=== PATIENT | female | born 1970 | race Caucasian/White ===

== ENCOUNTER 2017-03-08 13:26 | Emergency (ER) | payer MEDICAID ==
[~2017-03-08] VITALS: Ht 160 cm; Wt 56.7 kg
[~2017-03-08 13:26] MED LIST: BUSPIRONE 5MG TA5 MG PO; ESCITALOPRAM 2020 MG PO; ETODOLAC400 MG PO; FLEXERIL10 MG PO; HYDROCODONE-APA1 TA1 PO; KEFLEX500 M1 PO; LEXAPRO 10 MG T10 MG PO; TRAZODONE 50MG50 MG PO; TYLENOL WITH CO1 TA1 PO
--- NOTE | 2017-03-08 13:49 | [facility] Report ---
History of Present Issue Date/Time Seen by Provider 03/08/17 7068 Visit Reason Pt arrived:Walked Presenting Problem:P/T C/O LEFT SHOULDER PAIN THAT RADIATES UP TO NECK AND DOWN TO ELBOW Location if Accident: Onset of symptoms date/time:/ or onset unknown for:MEDICAL HX UNKNOWN Have you (or family members/close friends) recently traveled outside the [place]? N If Yes, where/when: Have you had exposure to infectious disease within the past month? TB? Other? Specify: c/o left shoulder blade pain radiating up neck and into left arm at times worsening since yesterday. Pain worse "with too much rest or too much movement". Described as "tightening. Like a squeezing in my shoulder blade." Spent the weekend lifting and moving heavy items. Denies N/T. Limited ROM left shoulder "because it makes pain worse but I could do it". Little improvement w/ ibuprofen as needed. Hasn't taken it consistently or tried anything else. Denies decreased ROM neck "although looking left makes my shoulder blade hurt worse" Source patient Exam Limitations no limitations ALLERGIES Coded Allergies: erythromycin base (08/20/16) Home Medications Active Scripts Cephalexin (Keflex 500MG) 500 MG PO QID #40 CAP Prov: 11/21/16 Reported Medications Buspirone Hcl (Buspirone 5MG) 5 MG PO TID TRAZODONE HCL (Trazodone HCl) 75 MG PO QHS Escitalopram Oxalate (Lexapro 10MG) 10 MG PO DAILY History Medical History General CAD? No Angina: No UT: No Hypertension? No Hyperlipidemia? No CHF? No DVT? No PE? No COPD? No Asthma? No Anemia? No GERD? No Gastric ulcers? No GI Bleed? No Hernia? No Thyroid Problems? No Hypothyroidism? No CVA? No Seizures? No Diabetes? No Renal Insuffiency? No UTI? No Stones? No BPH? No GB Disease: No Nephritic Syndrome? No Asplenia? No Hepatitis? No Sickle Cell Disease? No Arthritis? No Migraines? Yes Cataracts? No Glaucoma? No MRSA? No HIV? No TB? No Anxiety? Yes Depression? Yes Cancer? No More? No Immunization HX DT/Tetanus [id number] Surgical Hx Previous Surgery?Y PARTIAL HYSTERECTOMY APPENDECTOMY GALLBLADDER CYST ON OVARY Social History Smoking Hx Smoker: Current Every Day Smoker Tobacco: Yes Type Cigarettes Packs/day < 1 Pack Alcohol Alcohol: No Review of Systems All Other Systems Reviewed and Negative Constitutional denies chills, denies fever, denies malaise Respiratory denies shortness of breath Cardiovascular denies chest pain, denies palpitations Gastrointestinal denies nausea, denies vomiting Musculoskeletal see HPI Skin denies lesions, denies rash Psychiatric/Neurological denies headache Physical Exam Vital Signs Vital Signs Date Time Temp Pulse Resp B/P Pulse O2 O2 Flow FiO2 Ox Delivery Rate 03/08 1415 98.3 71 18 125/75 94 03/08 1356 18 03/08 1340 98.3 71 18 125/75 94 General Appearance normal appearance, no apparent distress Neck supple, full range of motion, mild tenderness left posterior Respiratory Status No: respiratory distress. Lung Sounds anterior: lungs clear. posterior: lungs clear. bilateral: lungs clear. Cardiovascular regular rate/rhythm, no peripheral edema, no murmur Back no vertebral tenderness, gait normal, left thoracic tenderness consistent w / location of trapezus muscle; + spasm of muscle Extremities normal range of motion (left UE but w/ inc pain), normal inspection Strength 5 Upper Ext (L), 5 Upper Ext (R) Neurologic alert, no motor/sensory deficits Skin normal color, warm/dry Medical Decision Making LABS/Meds/Orders Pt receiving controlled substance in ED? No Results/Orders Current Medication Orders Sig/Theodora Start time Last Medication Dose Route Stop Time Status Admin Ketorolac 60 MG ONCE ONE 03/08 1400 DC 03/08 Tromethamine IM 03/08 1401 1356 Ketorolac 0 .STK-MED ONE 03/08 1351 DC Tromethamine .ROUTE Departure Departure Time of Disposition 1410 Disposition DC Home or Self Care(routine) Clinical Impression Primary Impression: Strain of left trapezius muscle Qualifiers: Encounter type: initial encounter Qualified Code: S46.812A - Strain of other muscles, fascia and tendons at shoulder and upper arm level, left arm, initial encounter Secondary Impressions: Muscle spasm of left shoulder Condition STABLE Referrals MARCE PENDLETON (Family) Call today and schedule follow up appointment. Follow up sooner for new or worsening symptoms. Patient Instructions Cyclobenzaprine, DI for Muscle Spasm, DI for Shoulder Sprain, Nonsteroidal Anti-inflammatory Drugs (Alternative Therapy) Additional Instructions * Naproxen with meal as twice a day for pain/inflammation. * Remember you had a toradol shot, similiar anti-inflammatory in clinic around 1 :30 * No additional anti-inflammatories like motrin, aleve, advil with the above amount of ibuprofen. You CAN still take Tylenol every 4 hours as needed if you need something more for pain. * Ice x15-20 mins 3-4 times a day and if no relief, try moist heat x15-20 mins 3-4 times a day to affected area * Muscle relaxer every 8 hours as needed for muscle spasms but remember, it WILL cause drowsiness. You can NOT take it and drive, operate machinary or care for small children * Keep this area active. No movement leads to more stiffness. However, take it easy too and avoid heavy lifting, pushing, pulling. Discharge Counseling Counseled pt/family regarding diagnosis, medications/RX, home care, follow up needs Prescriptions Current Visit Scripts NAPROXEN (NAPROSYN 500MG TAB) 500 MG PO BID #20 TAB take with meals Cyclobenzaprine Hcl (Flexeril) 5-10 MG PO TIDP PRN muscle spasm #12 TAB will cause drowsiness at 6415
[2017-03-08] MEDS ORDERED: FLEXERIL10 MG PO (14:14)
[2017-03-08] MEDS ORDERED: NAPROSYN 500MG500 MG PO (14:14)
[2017-03-08 14:15] VITALS: BP 125/75
== END 2017-03-08 14:16 | disposition home or self-care (01) ==
LOC: UTC 13:26
DX: S46.812A Strain of other muscles, fascia and tendons at shoulder and upper arm level, left arm, initial encounter (principal); Z72.0 Tobacco use

== ENCOUNTER 2017-08-16 10:00 | Emergency (ER) | payer MEDICAID ==
[~2017-08-16] VITALS: Ht 160 cm; Wt 56.7 kg
[~2017-08-16 10:00] MED LIST changes: +AUGMENTIN 875-1 EACH PO; +DICLOFENAC 50MG50 MG PO; +FLONASE 50 MCG16 GM; +NAPROSYN 500MG500 MG PO; +PREDNISONE 20MG20 MG PO; +ROBAXIN500 M1 PO; +SIMVASTATIN10 MG PO; +VENLAFAXINE HYD75 M1 PO
--- OUTSIDE RECORDS SUMMARY | 2017-08-16 10:29 | External Medical Summary Rpt | CCD ---
Author Author , KAVIN Organization KAVIN Address Unknown Phone [email or web address] Care Team Providers Care Assistant Commissioner Name Role Phone MAGDA TONYA, MAGDA Unavailable Unavailable TONYA AHMED, EID A, Unavailable Unavailable AHMED, EID A Arden RUIZ, Unavailable Unavailable Arden RUIZ, FRANSICO KENNEDY Unavailable Unavailable SPICER, SPICER Unavailable Unavailable SPICER ALL, SPICER ALL Unavailable Unavailable CELLAROSI - YORBA Unavailable Unavailable PAT, CELLAROSI - YORBA PAT CELLAROSI - YORBA, Unavailable Unavailable LAKESHA Dunn, CELLAROSI - YORBA, LIANET PEARLTA, BEHZAD, Unavailable Unavailable LIANET [facility], Unavailable Unavailable [facility] LEANDER CARTER, LEANDER CARTER Unavailable Unavailable RUDY GRANT Unavailable Unavailable [facility] 2332, Unavailable Unavailable [facility] 2332 TERRANCE, THADDEUS, TERRANCE, Unavailable Unavailable THADDEUS XIMENA CARRIZALES DEPA, Unavailable Unavailable TOM EWING Unavailable Unavailable [facility] Unavailable Unavailable GROUP P, [facility] Unavailable Unavailable MEDICAL, [facility] JR RASMUSSEN FULLER, Unavailable Unavailable JR [facility] Unavailable Unavailable HOSPITAL, [facility] Unavailable Unavailable HOSPITA, [facility] JOSSELIN RHO, JOSSELIN Unavailable Unavailable RHO HAJIBRAHIM SANJUANA, Unavailable Unavailable HAJIBRAHIM SANJUANA KATARZYNA MONIQUE, Unavailable Unavailable KATARZYNA MONIQUE ORTIZ CARRIE, ORTIZ Unavailable Unavailable [facility], Unavailable Unavailable [facility] Unavailable Unavailable [facility], [facility] JR MARCIA HOOD, Unavailable Unavailable JR MARCIA HOOD, Unavailable Unavailable CAMPBELL MARSHALL KAREN [facility] Unavailable Unavailable EMERGENCY, [facility] Unavailable Unavailable [facility], [facility] KOSTELIC, FERDINAND K, Unavailable Unavailable KOSTELIC, FERDINAND K MATAR RAC, MATAR RAC Unavailable Unavailable COLLAZO SEA, COLLAZO SEA Unavailable Unavailable OZOR MAR, OZOR MAR Unavailable Unavailable [facility], Unavailable [facility]available [facility], [facility] RACE, JANI F, RACE, Unavailable Unavailable JANI F RADMANESH, RADMANESH Unavailable Unavailable RADMANESH SHA, Unavailable Unavailable RADMANESH SHA RENUSCH RASHIDA, RENUSCH Unavailable Unavailable Fanta DUPREE N, Fanta SANCHEZ Unavailable Unavailable N IRASEMA MANDEEP, IRASEMA MANDEEP Unavailable Unavailable KE YAN, KE YAN Unavailable Unavailable MACIAS MAR, MACIAS MAR Unavailable [facility]available [facility] Unavailable Unavailable [facility] Unavailable Unavailable EMERG[facility]Y PH[facility], [facility] Unavailable Unavailable EMERGENCY PHYSI, [facility] EMERGENCY [facility]YSI [facility], Unavailable Unavailable [facility] CANDACE BRADLEY, MARIA Unavailable Unavailable RYA BREWER RAY, BREWER Unavailable Unavailable PATRICIA MULTANI, Unavailable Unavailable PATRICIA ROSEN PHILLIP L, Unavailable Unavailable ANDREW DAVID SANDRO, TRISTON Unavailable Unavailable SANDRO ARIADNA MAT, ARIADNA MAT Unavailable Unavailable Purpose Continuity of Care Document - 12-09-2007 through 2016 Problems Code Diagnosis DOS Provider Status [id number] PAIN IN 06-13-2017 [facility] LEFT [facility], SHOULDER [facility] [id number] SPONDYLOSIS 06-13-2017 [place] W/O MEDICAL MYELOPATH/R IMAGING ASS ADICULOPATH Y CERV RGN M542 CERVICALGIA 06-13-2017 [facility], [facility] R079 CHEST PAIN 06-13-2017 [place] UNSPECIFIED MEDICAL IMAGING ASS R25856 MIGRAINE 11-27-2016 [facility] INTRACT W/O INC STATUS MIGRAINOSUS Z720 TOBACCO USE 11-27-2016 [facility] L739 FOLLICULAR 11-21-2016 [facility] DISORDER PHYSICIANS, UNSPECIFIED [facility] [id number] PAIN IN 10-07-2016 [place] RIGHT MEDICAL SHOULDER IMAGING ASS [id number] CONTUSION 10-07-2016 [facility] RT FRONT PHYSICIANS, WALL THORAX PLLC INITIAL ENCOUNTER [id number] CONTUSION 10-07-2016 [facility] OF RIGHT PHYSICIANS, SHOULDER PLL INITIAL ENCOUNTER [id number] UNS INJURY 10-07-2016 [place] RT SHOULDER MEDICAL UPPER ARM IMAGING ASS INITIAL ENCNTR [id number] BURN 2ND 08-20-2016 [facility] DEGREE LT PHYSICIANS, LOWER LEG PLLC INITIAL ENCOUNTER M545 LOW BACK 07-09-2016 [place] PAIN MEDICAL IMAGING ASS [id number] SPRAIN 07-09-2016 [facility] LUMBAR INC SPINE INITIAL ENCOUNTER [id number] STRAIN 07-09-2016 [facility] MUSCLE PHYSICIANS, FASCIA & PLLC TENDON LOW BACK INITIAL [id number] UNSPECIFIED 07-09-2016 [place] INJURY MEDICAL LOWER BACK IMAGING ASS INITIAL ENCOUNTER [id number] UNSPECIFIED 05-30-2016 [facility] SPRAIN [facility] N EMERGENCY SHOULDER PHYS JOINT INITIAL ENC Y93F2 ACTIVITY 05-30-2016 [facility] CAREGIVING N EMERGENCY LIFTING PHYS E90538 PAIN IN 05-27-2016 [place] RIGHT KNEE MEDICAL IMAGING ASS [id number] SPRAIN 05-15-2016 [facility] OTHER SPEC PHYSICIANS, PARTS RIGHT PLLC KNEE INITIAL ENC M2391 UNSPECIFIED 04-09-2016 [facility] INTERNAL RADIOLOGY DERANGEMENT GROUP P OF RIGHT KNEE N63 UNSPECIFIED 03-04-2016 [place] LUMP IN COMMUNTIY BREAST HOSPITA N6489 OTHER 03-04-2016 [facility] [place] SPECIFIED RADIOLOGY DISORDERS OF BREAST R928 OTH ABNORM 03-04-2016 [facility] & COMMUNTIY INCONCLUSIV HOSPITA E FIND ON DX IMAG BREAST Z043 ENCOUNTER 02-06-2016 [facility] EXAM & RADIOLOGY OBSERVATION GROUP P FOLLOW OTH ACCIDENT [id number] CHRONIC 01-21-2016 [facility] MIGRAINE N EMERGENCY W/O AURA PHYS NOT INTRACT W/O SM R590 LOCALIZED 12-23-2015 [place] ENLARGED COMMUNTIY LYMPH NODES HOSPITA R591 GENERALIZED 12-23-2015 [facility] ENLARGED N EMERGENCY LYMPH NODES PHYS [id number] CONTUSION 11-17-2015 [place] OF LEFT REGIONAL SHOULDER MEDICAL INITIAL ENCOUNTER R0789 OTHER CHEST 08-03-2015 [facility] PAIN [facility] EMERGENCY 7265 ENTHESOPATH 06-01-2015 [facility] Y OF HIP [facility] EMERGENCY 12230 OBSTRUCTIVE 05-13-2015 [facility] CHRONIC N EMERGENCY BRONCHITIS PHYS WITH EXACERBATIO N 7862 COUGH 05-13-2015 [facility] [place] [facility] 80542 PAIN IN 05-04-2015 [facility] JOINT N EMERGENCY PELVIC PHYS REGION AND THIGH 50953 NONTRAUMATI 05-04-2015 [facility] C HEMATOMA N EMERGENCY OF SOFT PHYS TISSUE 0539 HERPES 03-21-2015 [facility] ZOSTER N EMERGENCY WITHOUT PHYS MENTION OF COMPLICATIO N 7177 CHONDROMALA 12-04-2014 [facility] [place] 61239 PAIN IN 12-04-2014 [place] JOINT, COMMUNTIY LOWER LEG HOSPITA 06078 PAIN IN 10-30-2014 [facility] JOINT, N EMERGENCY SHOULDER PHYS REGION 8449 SPRAIN&STRA 10-09-2014 [facility] IN OF N EMERGENCY UNSPECIFIED PHYS SITE OF KNEE&LEG E9288 OTHER 10-09-2014 [facility] ACCIDENT N EMERGENCY PHYS 13253 VOMITING 07-21-2014 [facility] ALONE N EMERGENCY PHYSI 9114 TRNK INSECT 07-05-2014 [facility] BITE N EMERGENCY NONVENOMOUS PHYSI WITHOUT MENTION INF 9124 SHLDR&UP 07-05-2014 [facility] ARM INSECT N EMERGENCY BITE PHYSI NONVENOMOUS W/O INF E9064 BITE OF 07-05-2014 [facility] NONVENOMOUS N EMERGENCY ARTHROPOD PHYSI 42729 MIGRAINE 06-16-2014 [facility] UNSP W/O N EMERGENCY INTRACT W/O PHYSI STATUS MIGRAINOSUS 4658 ACUTE URIS 06-14-2014 [facility] MULTIPLE PHYS SITES 00420 NAUSEA WITH 06-14-2014 [facility] VOMITING N EMERGENCY PHYS 26806 DIARRHEA 04-21-2014 [facility] N EMERGENCY PHYSI 96475 ABDOMINAL 04-21-2014 [facility] PAIN, N EMERGENCY UNSPECIFIED PHYSI SITE 7231 CERVICALGIA 02-18-2014 [facility] 35745 DEHYDRATION 01-21-2014 [facility] N EMERGENCY PHYSI 38423 UNSPEC 12-09-2013 [facility] BURSAE&TEND ONS SHOULDER REGION 07213 CONTUSION 12-09-[address] [facility] REGION 7241 PAIN IN 05-30-2008 [facility] [place] THORACIC RADIOLOGY SPINE 7840 HEADACHE 05-30-2008 [facility] RADIOLOGY 8409 SPRAIN&STRA 05-30-2008 [facility] IN UNSPEC N EMERGENCY SITE PHYS INC SHOULDER&UP PER ARM 8470 NECK SPRAIN 05-30-2008 [facility] AND STRAIN N EMERGENCY PHYS INC 8471 THORACIC 05-30-2008 [facility] SPRAIN AND N EMERGENCY STRAIN PHYS INC 25299 INJURY OF 05-30-2008 [facility] [place] FACE AND RADIOLOGY NECK OTHER AND UNSPECIFIED E8809 ACCIDENTAL 05-30-2008 [facility] FALL ON OR N EMERGENCY FROM OTHER PHYS INC STAIRS OR STEPS 4550 INTERNAL 05-10-2008 [facility] HEMORRHOIDS COMMUNITY WITHOUT HOSPITAL MENTION COMP 5693 HEMORRHAGE 05-10-2008 [facility] OF RECTUM NKLIN, AND ANUS ROLANDO 05578 ABDOMINAL 05-10-2008 [facility] PAIN OTHER COMMUNITY SPECIFIED HOSPITAL SITE 76220 ABDOMINAL 04-18-2008 [facility], PAIN RIGHT PATRICIA C LOWER QUADRANT 63902 ABDOMINAL 04-18-2008 [facility], PAIN, LEFT PATRICIA C LOWER QUADRANT 5990 URINARY 04-07-2008 [facility] SITE NOT SPECIFIED 4739 UNSPECIFIED 04-03-2008 [facility] SINUSITIS N EMERGENCY PHYS INC 2768 HYPOPOTASSE 03-23-2008 [facility] DEEPALI N EMERGENCY PHYS INC 89280 CALCU 03-23-2008 [facility] GALLBLADD N EMERGENCY W/O MENTION PHYS INC CHOLECYST/O BST 6238 OTHER 03-23-2008 [facility] SPECIFIED N EMERGENCY NONINFLAMMA PHYS INC TORY DISORDER VAG[place] 66613 PAIN IN 03-03-2008 [facility] [place] JOINT, RADIOLOGY ANKLE AND FOOT 80744 UNSPECIFIED 03-03-2008 [facility] SITE OF N EMERGENCY ANKLE PHYS INC SPRAIN AND STRAIN E8490 PLACE OF 03-03-2008 [facility] E927 OVEREXERTIO 03-03-2008 [facility] N&STRENUOUS N EMERGENCY &REPETITIVE PHYS INC MVMNTS/LOAD S 7242 LUMBAGO 02-25-2008 [facility] N EMERGENCY PHYS INC V642 SURG/OTH 12-21-2007 [place] PROC NOT COMMUNITY CARRIED OUT HOSPITAL BECAUSE PTS DECN 45898 UNSPECIFIED 12-09-2007 [facility] VIRAL N EMERGENCY INFECTION PHYS INC IN CCE & UNS SITE Allergies, Adverse Reactions, Alerts Clinical Alert Notifications Alert Asthma: absence of controller with h/o SA beta agonist Asthma: no influenza vaccine in the last 365 days Medications Na ND Rx Da Fi Fi Am Da Di Ph RX Ph St me C No te ll ll ou ys ag ar # ys at rm s nt no ma ic us Or Da si cy ia de te s n re d ME 00 09 10 60 30 00 KE Ac TH 60 -1 -2 .0 00 NT ti OC 34 8- 0- 00 00 UC ve AR 48 20 20 91 [place] BA 52 17 17 57 MO 1 49 CV L S 50 PH 0 AR MG MA CY TA BL LL ET C, DB A CV S PH AR MA CY #0 54 37 DI 16 09 10 60 30 00 KE Ac CL 57 -1 -2 .0 00 NT ti OF 10 8- 0- 00 00 UC ve EN 20 20 20 91 [place] AC 21 17 17 57 0 50 CV SO S D PH EC AR MA 50 CY MG LL C, TA B DB A CV S PH AR MA CY #0 54 37 VE 00 09 10 18 27 00 KE Ac NT 17 -3 -2 .0 00 NT ti OL 30 0- 0- 00 00 UC ve IN 68 20 20 90 [place] 22 17 17 99 HF 0 67 CV A S 90 PH AR MC MA G CY IN OROZCO LL LE C, R DB A CV S PH AR MA CY #0 54 37 VE 00 10 10 30 30 00 KE Ac NL 09 -0 -2 .0 00 NT ti AF 37 1- 0- 00 00 UC ve AX 38 20 20 91 [place] IN 59 17 17 31 E 8 59 CV HC S L PH ER AR MA 75 CY MG LL C, CA P DB A CV S PH AR MA CY #0 54 37 SI 65 09 10 30 30 00 KE Ac MV 86 -1 -1 .0 00 NT ti 20 2- 3- 00 00 UC ve TA 05 20 20 91 [place] TI 19 17 17 47 N 0 57 CV 10 S PH MG AR MA TA CY BL ET LL C, DB A CV S PH AR MA CY #0 54 37 MD 65 09 10 15 5 00 KE Ac OM 16 -1 -1 .0 00 NT ti ET 20 2- 3- 00 00 UC ve OROZCO 52 20 20 91 [place] ZI 11 17 17 22 NE 0 08 CV S 25 PH AR MG MA CY TA BL LL ET C, DB A CV S PH AR MA CY #0 54 37 ES 16 09 10 30 30 00 KE Ac CI 72 -0 -0 .0 00 NT ti TA 90 7- 6- 00 00 UC ve LO 16 20 20 91 [place] MD 90 17 17 36 AM 1 97 CV S 10 PH AR MG MA CY TA BL LL ET C, DB A CV S PH AR MA CY #0 54 37 BU 00 09 10 90 30 00 KE Ac SP 37 -0 -0 .0 00 NT ti IR 81 7- 6- 00 00 UC ve ON 15 20 20 91 [place] E 00 17 17 36 HC 1 98 CV L S 10 PH AR MG MA CY TA BL LL ET C, DB A CV S PH AR MA CY #0 54 37 MD 65 09 10 15 5 00 KE Ac OM 16 -0 -0 .0 00 NT ti ET 20 5- 6- 00 00 UC ve OROZCO 52 20 20 91 [place] ZI 11 17 17 22 NE 0 08 CV S 25 PH AR MG MA CY TA BL LL ET C, DB A CV S PH AR MA CY #0 54 37 VE 00 09 10 30 30 00 KE Ac NL 09 -0 -0 .0 00 NT ti AF 37 5- 6- 00 00 UC ve AX 38 20 20 91 [place] IN 59 17 17 31 E 8 59 CV HC S L PH ER AR MA 75 CY MG LL C, CA P DB A CV S PH AR MA CY #0 54 37 TR 50 09 10 45 30 00 KE Ac AZ 11 -0 -0 .0 00 NT ti OD 10 7- 6- 00 00 UC ve ON 43 20 20 91 [place] E 30 17 17 36 50 1 96 CV S MG PH AR TA MA BL CY ET LL C, DB A CV S PH AR MA CY #0 54 37 MD 65 08 09 15 5 00 KE Ac OM 16 -3 -2 .0 00 NT ti ET 20 0- 9- 00 00 UC ve OROZCO 52 20 20 91 [place] ZI 11 17 17 22 NE 0 08 CV S 25 PH AR MG MA CY TA BL LL ET C, DB A CV S PH AR MA CY #0 54 37 AM 00 08 09 14 7 00 WA Ac OX 78 -3 -2 .0 00 L- ti -C 11 - 9- 07 MA ve LA 85 20 20 50 RT V 22 17 17 71 87 0 58 PH 5- AR 12 MA 5 CY MG #5 TA 91 BL ET VE 00 08 09 30 30 00 KE Ac NL 09 -3 -2 .0 00 NT ti AF 37 0- 9- 00 00 UC ve AX 38 20 20 91 [place] IN 69 17 17 21 E 8 42 CV HC S L PH ER AR MA 15 CY 0 MG LL C, CA P DB A CV S PH AR MA CY #0 54 37 DI 16 08 09 60 30 00 KE Ac CL 57 -2 -2 .0 00 NT ti OF 10 1- 2- 00 00 UC ve EN 20 20 20 90 [place] AC 21 17 17 99 0 69 CV SO S D PH EC AR MA 50 CY MG LL C, TA B DB A CV S PH AR MA CY #0 54 37 ME 00 08 09 60 30 00 KE Ac TH 60 -2 -2 .0 00 NT ti OC 34 1- 2- 00 00 UC ve AR 48 20 20 90 [place] BA 52 17 17 99 MO 1 68 CV L S 50 PH 0 AR MG MA CY TA BL LL ET C, DB A CV S PH AR MA CY #0 54 37 VE 00 08 09 18 27 00 KE Ac NT 17 -2 -2 .0 00 NT ti OL 30 1- 2- 00 00 UC ve IN 68 20 20 90 [place] 22 17 17 99 HF 0 67 CV A S 90 PH AR MC MA G CY IN OROZCO LL LE C, R DB A CV S PH AR MA CY #0 54 37 SI 65 08 09 11 11 00 CV Ac MV 86 -2 -2 .0 00 S ti 20 6- 2- 00 01 PH ve TA 05 20 20 37 AR TI 19 17 17 60 MA N 0 51 CY 10 #0 MG 23 32 TA BL ET VE 00 08 09 30 30 00 CV Ac NL 09 -1 -0 .0 00 S ti AF 37 0- 1- 00 01 PH ve AX 38 20 20 38 AR IN 59 17 17 07 MA E 8 07 CY HC L #0 ER 23 32 75 MG CA P MD 00 08 09 19 10 00 CV Ac ED 14 -1 -0 .0 00 S ti NI 39 0- 1- 00 01 PH ve SO 73 20 20 38 AR NE 91 17 17 07 MA 0 06 CY 10 #0 MG 23 32 TA BL ET BU 00 08 09 90 30 00 CV Ac SP 37 -0 -0 .0 00 S ti IR 81 4- 1- 00 01 PH ve ON 15 20 20 34 AR E 00 17 17 36 MA HC 1 59 CY L 10 #0 23 MG 32 TA BL ET TR 50 08 09 45 30 00 CV Ac AZ 11 -1 -0 .0 00 S ti OD 10 2- 1- 00 01 PH ve ON 43 20 20 37 AR E 30 17 17 03 MA 50 1 93 CY MG #0 23 TA 32 BL ET SI 65 07 09 30 30 00 CV Ac MV 86 -3 -0 .0 00 S ti 20 1- 1- 00 01 PH ve TA 05 20 20 37 AR TI 19 17 17 60 MA N 0 51 CY 10 #0 MG 23 32 TA BL ET ES 16 08 09 30 30 00 CV Ac CI 72 -1 -0 .0 00 S ti TA 90 2- 1- 00 01 PH ve LO 16 20 20 35 AR MD 90 17 17 98 MA AM 1 26 CY 10 #0 23 MG 32 TA BL ET VE 00 07 08 18 27 00 CV Ac NT 17 -1 -1 .0 00 S ti OL 30 7- 8- 00 01 PH ve IN 68 20 20 35 AR 22 17 17 72 MA HF 0 43 CY A 90 #0 23 MC 32 G IN OROZCO LE R TR 50 07 08 45 30 00 CV Ac AZ 11 -1 -1 .0 00 S ti OD 10 7- 8- 00 01 PH ve ON 43 20 20 37 AR E 30 17 17 03 MA 50 1 93 CY MG #0 23 TA 32 BL ET VE 00 07 08 30 30 00 CV Ac NL 09 -2 -1 .0 00 S ti AF 37 0- 8- 00 01 PH ve AX 38 20 20 37 AR IN 49 17 17 20 MA E 8 37 CY HC L #0 ER 23 32 37 .5 MG CA P BU 00 07 08 90 30 00 CV Ac SP 37 -0 -0 .0 00 S ti IR 81 6- 4- 00 01 PH ve ON 15 20 20 34 AR E 00 17 17 36 MA HC 1 59 CY L 10 #0 23 MG 32 TA BL ET ES 16 07 08 30 30 00 CV Ac CI 72 -1 -0 .0 00 S ti TA 90 5- 4- 00 01 PH ve LO 16 20 20 35 AR MD 90 17 17 98 MA AM 1 26 CY 10 #0 23 MG 32 TA BL ET ES 16 06 07 30 30 00 CV Ac CI 72 -1 -2 .0 00 S ti TA 90 9- 1- 00 01 PH ve LO 16 20 20 35 AR MD 90 17 17 98 MA AM 1 26 CY 10 #0 23 MG 32 TA BL ET TR 50 06 07 45 30 00 CV Ac AZ 11 -1 -2 .0 00 S ti OD 10 9- 1- 00 01 PH ve ON 43 20 20 30 AR E 30 17 17 85 MA 50 1 50 CY MG #0 23 TA 32 BL ET BU 00 06 07 90 30 00 CV Ac SP 37 -0 -0 .0 00 S ti IR 81 8- 7- 00 01 PH ve ON 15 20 20 34 AR E 00 17 17 36 MA HC 1 59 CY L 10 #0 23 MG 32 TA BL ET VE 00 06 07 18 27 00 CV Ac NT 17 -1 -0 .0 00 S ti OL 30 2- 7- 00 01 PH ve IN 68 20 20 35 AR 22 17 17 72 MA HF 0 43 CY A 90 #0 23 MC 32 G IN OROZCO LE R MD 00 06 07 10 5 00 WA Ac ED 14 -0 -0 .0 00 L- ti NI 39 9- 7- 00 07 MA ve SO 73 20 20 49 RT NE 80 17 17 25 5 94 PH 20 AR MA MG CY TA #5 BL 91 ET TR 50 05 06 45 30 00 CV Ac AZ 11 -2 -2 .0 00 S ti OD 10 4- 3- 00 01 PH ve ON 43 20 20 30 AR E 30 17 17 85 MA 50 1 50 CY MG #0 23 TA 32 BL ET ES 16 05 06 30 30 00 CV Ac CI 72 -2 -2 .0 00 S ti TA 90 4- 3- 00 01 PH ve LO 16 20 20 29 AR MD 90 17 17 49 MA AM 1 00 CY 10 #0 23 MG 32 TA BL ET CY 68 05 06 12 4 00 WA Ac CL 64 -1 -0 .0 00 L- ti OB 50 5- 9- 00 07 MA ve EN 51 20 20 48 RT ZA 89 17 17 79 MD 0 62 PH IN AR E MA 10 CY MG #5 91 TA BL ET NA 65 05 06 20 10 00 WA Ac MD 16 -1 -0 .0 00 L- ti OX 20 5- 9- 00 07 MA ve EN 19 20 20 48 RT 01 17 17 79 50 1 63 PH 0 AR MG MA CY TA BL #5 ET 91 VE 00 05 06 18 27 00 CV Ac NT 17 -1 -0 .0 00 S ti OL 30 3- 2- 00 01 PH ve IN 68 20 20 26 AR 22 17 17 63 MA HF 0 71 CY A 90 #0 23 MC 32 G IN OROZCO LE R BU 00 05 06 90 30 00 CV Ac SP 37 -1 -0 .0 00 S ti IR 81 1- 2- 00 01 PH ve ON 15 20 20 34 AR E 00 17 17 36 MA HC 1 59 CY L 10 #0 23 MG 32 TA BL ET ES 16 04 05 30 30 00 CV Ac CI 72 -2 -1 .0 00 S ti TA 90 6- 9- 00 01 PH ve LO 16 20 20 29 AR MD 90 17 17 49 MA AM 1 00 CY 10 #0 23 MG 32 TA BL ET TR 50 04 05 45 30 00 CV Ac AZ 11 -2 -1 .0 00 S ti OD 10 6- 9- 00 01 PH ve ON 43 20 20 30 AR E 30 17 17 85 MA 50 1 50 CY MG #0 23 TA 32 BL ET BU 00 04 05 90 30 00 CV Ac SP 37 -1 -0 .0 00 S ti IR 81 2- 5- 00 01 PH ve ON 15 20 20 29 AR E 00 17 17 98 MA HC 1 37 CY L 10 #0 23 MG 32 TA BL ET ES 16 03 04 30 30 00 CV Ac CI 72 -3 -2 .0 00 S ti TA 90 0- 1- 00 01 PH ve LO 16 20 20 29 AR MD 90 17 17 49 MA AM 1 00 CY 10 #0 23 MG 32 TA BL ET VE 00 04 04 18 27 00 CV Ac NT 17 -0 -2 .0 00 S ti OL 30 1- 1- 00 01 PH ve IN 68 20 20 26 AR 22 17 17 63 MA HF 0 71 CY A 90 #0 23 MC 32 G IN OROZCO LE R TR 50 03 04 45 30 00 CV Ac AZ 11 -3 -2 .0 00 S ti OD 10 0- 1- 00 01 PH ve ON 43 20 20 30 AR E 30 17 17 85 MA 50 1 50 CY MG #0 23 TA 32 BL ET BU 00 03 03 90 30 00 CV Ac SP 37 -0 -3 .0 00 S ti IR 81 7- 1- 00 01 PH ve ON 15 20 20 29 AR E 00 17 17 98 MA HC 1 37 CY L 10 #0 23 MG 32 TA BL ET BU 10 03 03 30 30 00 CV Ac MD 37 -0 -3 .0 00 S ti OP 00 7- 1- 00 01 PH ve IO 10 20 20 25 AR N 25 17 17 35 MA HC 0 31 CY L XL #0 23 30 32 0 MG TA BL ET ES 16 02 03 30 30 00 CV Ac CI 72 -2 -1 .0 00 S ti TA 90 4- 7- 00 01 PH ve LO 16 20 20 29 AR MD 90 17 17 49 MA AM 1 00 CY 10 #0 23 MG 32 TA BL ET TR 50 02 03 45 30 00 CV Ac AZ 11 -2 -1 .0 00 S ti OD 10 4- 7- 00 01 PH ve ON 43 20 20 30 AR E 30 17 17 85 MA 50 1 50 CY MG #0 23 TA 32 BL ET BU 00 02 03 90 30 00 CV Ac SP 37 -0 -1 .0 00 S ti IR 81 8- 0- 00 01 PH ve ON 15 20 20 29 AR E 00 17 17 98 MA HC 1 37 CY L 10 #0 23 MG 32 TA BL ET BU 10 02 03 30 30 00 CV Ac MD 37 -0 -1 .0 00 S ti OP 00 7- 0- 00 01 PH ve IO 10 20 20 25 AR N 25 17 17 35 MA HC 0 31 CY L XL #0 23 30 32 0 MG TA BL ET VE 00 02 02 18 27 00 CV Ac NT 17 -0 -2 .0 00 S ti OL 30 2- 4- 00 01 PH ve IN 68 20 20 26 AR 22 17 17 63 MA HF 0 71 CY A 90 #0 23 MC 32 G IN OROZCO LE R CE 68 01 02 40 10 00 WA Ac PH 18 -2 -1 .0 00 L- ti AL 00 8- 7- 00 07 MA ve EX 12 20 20 46 RT IN 20 17 17 74 2 56 PH 50 AR 0 MA MG CY CA #5 PS 91 UL E AC 00 01 02 20 4 00 WA Ac ET 09 -2 -1 .0 00 L- ti AM 30 8- 7- 00 04 MA ve IN 15 20 20 52 RT OP 01 17 17 91 HE 0 83 PH N- AR CO MA D CY #3 #5 TA 91 BL ET TR 50 01 02 45 30 00 CV Ac AZ 11 -2 -1 .0 00 S ti OD 10 7- 7- 00 01 PH ve ON 43 20 20 22 AR E 30 17 17 81 MA 50 1 94 CY MG #0 23 TA 32 BL ET ES 16 01 02 30 30 00 CV Ac CI 72 -2 -1 .0 00 S ti TA 90 7- 7- 00 01 PH ve LO 16 20 20 29 AR MD 90 17 17 49 MA AM 1 00 CY 10 #0 23 MG 32 TA BL ET BU 10 01 02 30 30 00 CV Ac MD 37 -1 -1 .0 00 S ti OP 00 0- 0- 00 01 PH ve IO 10 20 20 25 AR N 25 17 17 35 MA HC 0 31 CY L XL #0 23 30 32 0 MG TA BL ET PETERS 55 01 02 9. 30 00 CV Ac MA 11 -1 -1 00 00 S ti TR 10 2- 0- 0 01 PH ve IP 29 20 20 26 AR TA 23 17 17 08 MA N 6 34 CY PETERS CC #0 23 50 32 MG TA BL ET NA 65 01 02 30 15 00 CV Ac MD 16 -2 -1 .0 00 S ti OX 20 2- 0- 00 01 PH ve EN 19 20 20 29 AR 05 17 17 21 MA 50 0 29 CY 0 MG #0 23 TA 32 BL ET BU 00 01 02 90 30 00 CV Ac SP 37 -1 -1 .0 00 S ti IR 81 0- 0- 00 01 PH ve ON 15 20 20 25 AR E 00 17 17 35 MA HC 1 30 CY L 10 #0 23 MG 32 TA BL ET TR 50 12 01 45 30 00 CV Ac AZ 11 -3 -2 .0 00 S ti OD 10 0- 0- 00 01 PH ve ON 43 20 20 22 AR E 30 16 17 81 MA 50 1 94 CY MG #0 23 TA 32 BL ET ES 16 12 01 30 30 00 CV Ac CI 72 -3 -2 .0 00 S ti TA 90 0- 0- 00 01 PH ve LO 16 20 20 18 AR MD 90 16 17 04 MA AM 1 06 CY 10 #0 23 MG 32 TA BL ET VE 00 12 01 18 28 00 CV Ac NT 17 -2 -1 .0 00 S ti OL 30 3- 3- 00 01 PH ve IN 68 20 20 26 AR 22 16 17 63 MA HF 0 71 CY A 90 #0 23 MC 32 G IN OROZCO LE R ET 51 12 01 14 7 00 CV Ac OD 67 -1 -0 .0 00 S ti OL 24 4- 9- 00 01 PH ve AC 01 20 20 27 AR 80 16 17 46 MA 40 1 15 CY 0 MG #0 23 TA 32 BL ET BU 46 08 08 01 24 6 CV 14 RA Ac TA 67 -0 -2 .0 S 60 CE ti LB 20 2- 8- 00 PH 37 ve -A 05 20 20 AR DA CE 31 08 08 MA TA 0 CY D RI F N- 23 CA 32 FF 50 -3 25 -4 0 TR 60 07 08 01 60 30 CV 14 AT Ac AZ 50 -1 -2 .0 S 14 CH ti OD 52 6- 8- 00 PH 68 ER ve ON 65 20 20 AR E 30 08 08 MA [address] 50 1 CY IG HT MG 23 D 32 TA BL ET AL 00 08 08 00 60 30 CV 14 AT Ac MD 37 -1 -2 .0 S 93 CH ti AZ 84 4- 8- 00 PH 36 ER ve OL 00 20 20 AR AM 30 08 08 [address] 5 CY IG 0. HT 5 23 D MG 32 TA BL ET TR 00 08 08 00 12 2 CV 14 GA Ac AM 09 -0 -1 .0 S 74 SK ti AD 30 6- 4- 00 PH 46 IN ve OL 05 20 20 AR S [address] HC 5 CY EV L EN 50 23 G 32 MG TA BL ET AM 00 08 08 00 30 10 CV 14 AD Ac OX 09 -0 -1 .0 S 75 KI ti IC 33 8- 4- 00 PH 36 NS ve IL 10 20 20 AR LI 90 08 08 MA JU N 5 CY LI 50 A 0 23 A MG 32 CA PS UL E BU 46 08 08 00 24 6 CV 14 RA Ac TA 67 -0 -1 .0 S 60 CE ti LB 20 2- 4- 00 PH 37 ve -A 05 20 20 AR DA CE 31 08 08 MA TA 0 CY D RI F N- 23 CA 32 FF 50 -3 25 -4 0 DI 00 07 08 00 90 30 CV 14 JE Ac CY 37 -1 -0 .0 S 16 NN ti CL 81 7- 1- 00 PH 05 IN ve OM 61 20 20 AR GS IN 00 08 08 MA -C E 1 CY ON 10 KL 23 IN MG 32 KA CA RE PS N UL E 52 07 08 00 1. 1 CV 14 JE Ac 26 -1 -0 00 S 06 NN ti 80 4- 1- 0 PH 18 IN ve 52 20 20 AR GS 10 08 08 MA -C 1 CY ON KL 23 IN 32 KA RE N AL 00 07 08 00 30 30 CV 14 AT Ac MD 37 -1 -0 .0 S 14 CH ti AZ 84 6- 1- 00 PH 58 ER ve OL 00 20 20 AR AM 50 08 08 [address] 1 5 CY IG HT MG 23 D 32 TA BL ET TR 60 07 08 00 60 30 CV 14 AT Ac AZ 50 -1 -0 .0 S 14 CH ti OD 52 6- 1- 00 PH 68 ER ve ON 65 20 20 AR E 30 [address] 50 1 CY IG HT MG 23 D 32 TA BL ET CL 00 06 07 01 90 30 CV 13 AT Ac ON 09 -1 -1 .0 S 10 CH ti AZ 30 0- 7- 00 PH 98 ER ve EP 83 20 20 AR AM 40 [address] 2 1 CY IG HT MG 23 D 32 TA BL ET MD 00 07 07 00 12 3 CV 13 CH Ac OM 78 -0 -1 .0 S 95 AN ti ET 11 9- 7- 00 PH 00 DL ve OROZCO 83 20 20 AR ER ZI 00 08 08 MA NE 1 CY KR IS 25 23 TY 32 MG TA BL ET 53 06 07 01 90 23 CV 13 DA Ac 74 -1 -1 .0 S 22 BN ti 60 4- 7- 00 PH 01 EY ve 13 20 20 AR 70 08 08 MA GI 5 CY NA 23 32 TR 00 06 07 01 60 4 CV 12 DI Ac AM 09 -0 -0 .0 S 92 ET ti AD 30 4- 3- 00 PH 55 Z ve OL 05 20 20 AR DA 80 08 08 MA NI HC 5 CY EL L LE 50 23 32 MG TA BL ET 45 06 07 00 90 23 CV 13 No Ac 80 -1 -0 .0 S 22 t ti 20 4- 3- 00 PH 01 Av ve 52 20 20 AR ai 29 08 08 MA la 0 CY bl e 23 32 FL 68 06 07 01 1. 1 CV 13 No Ac UC 46 -1 -0 00 S 22 t ti ON 20 4- 3- 0 PH 00 Av ve AZ 10 20 20 AR ai OL 34 08 08 MA la E 0 CY bl 15 e 0 23 MG 32 TA BL ET 49 06 07 00 20 10 CV 13 No Ac 88 -1 -0 .0 S 21 t ti 40 4- 3- 00 PH 99 Av ve 24 20 20 AR ai 30 08 08 MA la 3 CY bl e 23 32 00 06 07 00 10 2 CV 13 WA Ac 40 -1 -0 .0 S 11 GN ti 60 0- 3- 00 PH 76 ER ve 35 20 20 AR 70 08 08 MA PH 5 CY IL LI 23 P 32 L AM 00 06 07 00 42 14 CV 13 WA Ac OX 09 -1 -0 .0 S 11 GN ti IC 33 0- 3- 00 PH 73 ER ve IL 10 20 20 AR LI 70 08 08 MA PH N 5 CY IL 25 LI 0 23 P MG 32 L CA PS UL E CL 00 06 07 00 90 30 CV 13 AT Ac ON 09 -1 -0 .0 S 10 CH ti AZ 30 0- 3- 00 PH 98 ER ve EP 83 20 20 AR AM 40 08 08 MA DW 2 1 CY IG HT MG 23 D 32 TA BL ET TR 60 05 07 01 60 30 CV 12 AT Ac AZ 50 -2 -0 .0 S 52 CH ti OD 52 1- 3- 00 PH 58 ER ve ON 65 20 20 AR E 30 08 08 MA DW 50 1 CY IG HT MG 23 D 32 TA BL ET TR 00 06 06 00 60 4 CV 12 DI Ac AM 09 -0 -1 .0 S 92 ET ti AD 30 4- 2- 00 PH 55 Z ve OL 05 20 20 AR DA 80 08 08 MA NI HC 5 CY EL L LE 50 23 32 MG TA BL ET 00 06 06 00 10 2 CV 12 TR Ac 40 -0 -1 .0 S 97 EN ti 60 5- 2- 00 PH 11 T ve 35 20 20 AR RO 70 08 08 MA BE 5 CY RT C 23 32 NA 00 05 06 00 10 5 CV 12 No Ac MD 09 -3 -0 .0 S 81 t ti OX 30 0- 5- 00 PH 76 Av ve EN 14 20 20 AR ai 90 08 08 MA la 50 5 CY bl 0 e MG 23 32 TA BL ET CL 00 05 06 00 63 21 CV 12 AT Ac ON 09 -2 -0 .0 S 52 CH ti AZ 30 1- 5- 00 PH 78 ER ve EP 83 20 20 AR AM 30 08 08 MA DW 1 1 CY IG HT MG 23 D 32 TA BL ET TR 60 05 06 00 60 30 CV 12 AT Ac AZ 50 -2 -0 .0 S 52 CH ti OD 52 1- 5- 00 PH 58 ER ve ON 65 20 20 AR E 30 08 08 MA DW 50 1 CY IG HT MG 23 D 32 TA BL ET TR 00 05 05 00 24 3 CV 12 No Ac AM 09 -1 -2 .0 S 20 t ti AD 30 0- 2- 00 PH 60 Av ve OL 05 20 20 AR ai 80 08 08 MA la HC 5 CY bl L e 50 23 32 MG TA BL ET CY 00 05 05 00 12 4 CV 11 No Ac CL 37 -0 -2 .0 S 98 t ti OB 80 3- 2- 00 PH 09 Av ve EN 75 20 20 AR ai ZA 11 08 08 MA la MD 0 CY bl IN e E 23 10 32 MG TA BL ET NA 00 05 05 00 12 6 CV 11 No Ac MD 09 -0 -2 .0 S 98 t ti OX 30 3- 2- 00 PH 10 Av ve EN 53 20 20 AR ai 70 08 08 MA la SO 1 CY bl DI e UM 23 32 55 0 MG TA B CI 57 03 05 02 30 30 CV 10 ED Ac TA 66 -2 -2 .0 S 64 WA ti LO 40 0- 2- [address] ve MD 50 20 20 AR S AM 91 08 08 MA SH 3 CY AR HB ON R 23 40 32 MG TA BL ET CL 00 04 05 00 60 30 CV 11 No Ac ON 09 -2 -0 .0 S 67 t ti AZ 30 3- 8- 00 PH 63 Av ve EP 83 20 20 AR ai AM 20 08 08 MA la 1 CY bl 0. e 5 23 MG 32 TA BL ET TR 60 04 05 00 60 30 CV 11 No Ac AZ 50 -2 -0 .0 S 65 t ti OD 52 3- 8- 00 PH 97 Av ve ON 65 20 20 AR ai E 30 08 08 MA la 50 1 CY bl e MG 23 32 TA BL ET CI 57 03 04 01 30 30 CV 10 No Ac TA 66 -2 -2 .0 S 64 t ti LO 40 0- 4- 00 PH 53 Av ve MD 50 20 20 AR ai AM 91 08 08 MA la 3 CY bl HB e R 23 40 32 MG TA BL ET CI 57 03 04 00 30 30 CV 10 No Ac TA 66 -2 -1 .0 S 64 t ti LO 40 0- 7- 00 PH 53 Av ve MD 50 20 20 AR ai AM 91 08 08 MA la 3 CY bl HB e R 23 40 32 MG TA BL ET SE 00 07 03 03 30 30 CV 87 No Ac RO 31 -1 -2 .0 S 79 t ti QU 00 2- 4- 00 PH 64 Av ve EL 27 20 20 AR ai 51 07 08 MA la 25 0 CY bl e MG 23 32 TA BL ET Procedures Procedure DOS Code Location Performer Comment RADIOLOGI 68846 [facility] C EXAM 7 MEDICAL CHEST 2 IMAGING VIEWS ASS FRONTAL&L ATERAL [facility]8559 [facility] MEDICAL COMPLETE IMAGING MINIMUM [address] [place] [address] [facility] CERVICAL 7 MEDICAL SPINE W/O IMAGING CONTRAST ASS MATERIAL THERAPEUT 62138 RAHUL KAY IC 7 [facility] PROPHYLAC INC INC TIC/DX INJECTION SUBQ/IM RADEX 29461 [facility] 7 RADIOLOGY COMPLETE MINIMUM 2 VIEWS RADEX 32888 [facility] SHOULDER 6 MEDICAL COMPLETE IMAGING MINIMUM 2 ASS VIEWS RADEX 86721 [facility] CLAVICLE 6 MEDICAL COMPLETE IMAGING ASS RADEX 46008 [facility] ALL SPINE 6 MEDICAL LUMBOSACR IMAGING AL ASS MINIMUM 4 VIEWS RADEX 05183 [facility] [place] RADMANESH SHOULDER 6 RADIOLOGY SHA COMPLETE MINIMUM 2 [place] [address] [place] [place] ALL JT LOWER 6 MEDICAL EXTREM IMAGING W/O ASS CONTRAST MATRL RADIOLOGI 37225 [facility] SEA C 6 N EXAMINATI RADIOLOGY ON KNEE 3 GROUP P VIEWS DIAGNOSTI [id number] [facility] C 6 N N MAMMOGRAP COMMUNTIY COMMUNTIY HY INCL HOSPITA HOSPITA CAD WHEN PERF; BILAT US BREAST 38382 [facility] UNI REAL 6 N N TIME COMMUNTIY COMMUNTIY WITH HOSPITA HOSPITA IMAGE COMPLETE COMPUTER- 40381 [facility] AIDED 6 N N DETECTION COMMUNTIY COMMUNTIY DX HOSPITA HOSPITA MAMMOGRAP HY RADEX 92534 [facility] IARSEMA MANDEEP SPINE 6 N LUMBOSACR RADIOLOGY AL 2/3 GROUP P VIEWS INJECTION J1885 [facility] 6 N N KETOROLAC COMMUNTIY COMMUNTIY HOSPITA HOSPITA TROMETHAM INE PER 15 MG INFUSION J7030 [facility] NORMAL 6 N N SALINE COMMUNTIY COMMUNTIY SOLUTION HOSPITA HOSPITA 1000 CC RADEX 53389 [facility] SCAPULA 6 REGIONAL REGIONAL COMPLETE MEDICAL MEDICAL RADEX 33752 [facility] SHOULDER 6 REGIONAL REGIONAL COMPLETE MEDICAL MEDICAL MINIMUM 2 VIEWS RADIOLOGI 83286 RADIOLOGY IRASEMA KAUFMAN C 5 EXAMINATI ASSOCIATE ON CHEST S OF OZZIE SINGLE VIEW FRONTAL RADIOLOGI 16686 [facility] [place] JOSSELIN C EXAM 5 RADIOLOGY RHO CHEST 2 VIEWS FRONTAL&L ATERAL RADEX HIP 14616 [facility] [place] HAJIBRAHI 5 RADIOLOGY M SANJUANA UNILATERA L COMPLETE MINIMUM 2 [place] [address] [facility] [place] JOSSEL[place] JT LOWER 5 RADIOLOGY RHO EXTREM W/O CONTRAST MATRL RADIOLOGI 00755 [facility] [place] ORTIZ C EXAM 4 RADIOLOGY CARRIE KNEE COMPLETE 4/MORE VIEWS RADEX 16620 [facility] [place] MAGDA SHOULDER 4 RADIOLOGY TONYA COMPLETE MINIMUM 2 VIEWS RADEX 25784 [facility] [place] ARIADNA MAT SPINE 4 RADIOLOGY CERVICAL [address] [place] [address] [facility] [place] BREWER ABDOMEN & 4 RADIOLOGY RAY PELVIS W/O CONTRAST MATERIAL RADEX [address] COMPLETE MINIMUM 2 VIEWS RADEX 17477 [facility] [place] JOSEPH, SHOULDER 8 RADIOLOGY J COMPLETE MINIMUM [address] [place] [address] [facility] [place] KAYDEN, MAXILLOFA 8 RADIOLOGY KATARZYNA D CIAL W/O CONTRAST MATERIAL RADEX 46735 [facility] [place], SPINE 8 RADIOLOGY J CERVICAL 2 OR 3 VIEWS RADEX 41861 [facility] [place], SPINE 8 RADIOLOGY J THORACIC 2 VIEWS ANES 19676 [place] DEPA, LOWER 8 ANESTHESI XIMENA INTESTINE A GROUP PSC ENDOSCOPY DISTAL DUODENUM COLONOSCO 01199 [facility] PY FLX DX 8 N N W/COLLJ [facility] SPEC WHEN HOSPITAL HOSPITAL PFRMD UNLISTED 66656 [facility] ANESTHESI 8 N N A [facility] PROCEDURE [facility] HOSPITAL URNLS DIP [address] STICK/TAB E CENTER LET RGNT AUTO W/O MICROSCOP Y CUL BACT 20113 [facility] XCPT 8 N N URINE [facility] BLOOD/[facility] [place] [address] [facility] STREPTOCO 8 N N CCUS [facility] PELVIS 239[address] [facility] [place] KOSTELIC, W/O 8 [place] [address] [facility] [place] KOSTELIC, ABDOMEN 8 RADIOLOGY FERDINAND K W/O CONTRAST MATERIAL RADEX 36838 [facility] ANKLE 8 N N COMPLETE [facility] 3 [facility] VIEWS RADIOLOGI 77632 [facility] Fanta BROWN 8 RADIOLOGY N EXAMINATI ON ANKLE 2 VIEWS Encounters Encounter Start End Date Code Location Performer Type Date EMERGENCY 44117 SARAH RASMUSSEN, 7 7 PHYSICIAN [facility] HIGH/URGE NT SEVERITY OFFICE 07946 RAHUL ESCOBEDO 7 7 [facility] T NEW 20 INC MINUTES [facility] - [facility] OUTPATIEN INC T EMERGENCY 90080 SARAH RASMUSSEN 7 7 PHYSICIAN JR WATSON [facility], [facility] T VISIT MODERATE SEVERITY EMERGENCY 73864 RAHUL 7 7 [facility] T VISIT LOW/MODER SEVERITY HOSPITAL [facility] - 7 7 N OUTPATIEN COMMUNTIY T HOSPITA EMERGENCY 98722 [facility] 7 7 N [facility] T VISIT HOSPITA MODERATE SEVERITY HOSPITAL RAHUL - 6 6 [facility] 02339 SARAH BELLO 6 6 PHYSICIAN Karen GAN [facility] S, [facility] VIS[facility] HIGH/URGE NT SEVERITY EMERGENCY 84396 RAHUL 6 6 [facility] T VISIT LIMITED/M INOR PROB EMERGENCY 00413 SARAH DEAN 6 6 PHYSICIAN RASHIDA WATSON S, [facility] T VISIT MODERATE SEVERITY EMERGENCY 19416 RAHUL 6 6 [facility] T VISIT LIMITED/M INOR PROB EMERGENCY 80605 SARAH BELLO 6 6 PHYSICIAN Karen GAN [facility] S, [facility] VISIT MODERATE SEVERITY HOSPITAL RAHUL - 6 6 [facility]EN [facility] T EMERGENCY 45896 [facility] 6 6 [facility] EMER[facility]ENC[facility] T VISIT PHYS MODERATE SEVERITY HOSPITAL RAHUL - 6 6 [facility] 75267 RAHUL 6 6 [facility] DEPARTMEN INC T VISIT LOW/MODER SEVERITY EMERGENCY 03096 SARAH DEAN 6 6 [facility] T VISIT MODERATE SEVERITY EMERGENCY 73779 INDERJIT HUNT 6 6 MEDICAL DEPARTMEN SERVICES T VISIT MODERATE SEVERITY HOSPITAL [facility] - 6 6 N OUTPATIEN COMMUNTIY T HOSPITA EMERGENCY 16271 LIZ CAMACHOS[facility] DEPT 6 6 [facility] VISIT HIGH EMERGENCY SEVERITY& THREAT FUNCJ EMERGENCY 73773 [facility] 6 6 N DEPARTMEN COMMUNTIY T VISIT HOSPITA MODERATE SEVERITY EMERGENCY 50485 [facility] 6 6 MYAH DEPARTMEN EMERGENCY T VISIT PHYS HIGH/URGE NT SEVERITY HOSPITAL [facility] - 6 6 N OUTPATIEN COMMUNTIY T HOSPITA EMERGENCY 22796 [facility] CELLAROSI 6 6 MYAH - YORBA DEPARTMEN EMERGENCY PAT T VISIT PHYS MODERATE SEVERITY HOSPITAL [facility] - 6 6 N OUTPATIEN COMMUNTIY T HOSPITA EMERGENCY 13565 [facility] 6 6 N DEPARTMEN COMMUNTIY T VISIT HOSPITA LOW/MODER SEVERITY EMERGENCY 36242 [facility] 6 6 REGIONAL DEPARTMEN MEDICAL T VISIT MODERATE SEVERITY HOSPITAL [facility] - 6 6 REGIONAL OUTPATIEN MEDICAL T EMERGENCY 55631 JUNCANDACE MACIAS MAR DEPT 5 5 [facility] VISIT HIGH EMERGENCY SEVERITY& THREAT FUNCJ EMERGENCY 54593 LIZ TABOR TYL 5 5 [facility] DEPARTMEN T VISIT EMERGENCY HIGH/URGE NT SEVERITY EMERGENCY 31534 [facility] KE HEREDIA 5 5 MYAH DEPARTMEN EMERGENCY T VISIT PHYS MODERATE SEVERITY EMERGENCY 74697 [place] [facility] 5 5 MYAH CELY DEPARTMEN EMERGENCY T VISIT PHYS MODERATE SEVERITY EMERGENCY 97983 [facility] FRANSICO JAM 5 5 MYAH DEPARTMEN EMERGENCY T VISIT PHYS MODERATE SEVERITY HOSPITAL [facility] - 5 5 N OUTPATIEN COMMUNTIY T HOSPITA EMERGENCY 82429 [facility] TRISTON 5 5 MYAH SANDRO DEPARTMEN EMERGENCY T VISIT PHYS MODERATE SEVERITY EMERGENCY 45005 [facility] TRISTON 4 4 MYAH SANDRO DEPARTMEN EMERGENCY T VISIT PHYS MODERATE SEVERITY EMERGENCY 83149 [facility] RAHUL DEPT 4 4 MYAH SCO VISIT EMERGENCY HIGH PHYSI SEVERITY& THREAT FUNCJ EMERGENCY 14920 [facility] SERAOR MAR 4 4 MYAH DEPARTMEN EMERGENCY T VISIT PHYSI HIGH/URGE NT SEVERITY EMERGENCY 76256 [facility] CELLAROSI 4 4 MYAH - YORBA DEPARTMEN EMERGENCY PAT T VISIT PHYSI MODERATE SEVERITY EMERGENCY 34351 [facility] TOM 4 4 MYAH CELY DEPARTMEN EMERGENCY T VISIT PHYSI HIGH/URGE NT SEVERITY EMERGENCY 53119 [facility] MARIA 4 4 MYAH RYA DEPARTMEN EMERGENCY T VISIT PHYS HIGH/URGE NT SEVERITY EMERGENCY 28165 [facility] 4 4 MYAH SCO DEPARTMEN EMERGENCY T VISIT PHYSI HIGH/URGE NT SEVERITY EMERGENCY 70695 [facility] 4 4 MYAH SCO DEPARTMEN EMERGENCY T VISIT PHYSI MODERATE SEVERITY EMERGENCY 91889 [facility] SERAOR MAR DEPT 4 4 MYAH VISIT EMERGENCY HIGH PHYSI SEVERITY& THREAT FUNCJ EMERGENCY 99858 [facility] 4 4 HOSPITAL DEPARTMEN T VISIT MODERATE SEVERITY HOSPITAL [facility] - 4 4 HOSPITAL OUTPATIEN T EMERGENCY 11807 [facility], 8 8 MYAH LIANET DEPARTMEN EMERGENCY T VISIT PHYS INC HIGH/URGE NT SEVERITY EMERGENCY 10763 [facility], 8 8 MYAH JANI Gomez DEPARTMEN EMERGENCY T VISIT PHYS INC MODERATE SEVERITY HOSPITAL [facility] - 8 8 [facility] 51559 [facility], 8 8 [facility] T VISIT PHYS INC MODERATE SEVERITY OFFICE 00064 [facility] 8 8 PATRICIA Jewell T VISIT 15 MINUTES OFFICE 88853 [facility] 8 8 ADIS THADDEUS T VISIT E CENTER 15 MINUTES OFFICE 23523 [facility] 8 8 PATRICIA Jewell T VISIT 15 MINUTES HOSPITAL [facility] 8 [facility] [address] [facility], 8 8 MYAH ANDREW Magallon DEPARTMEN EMERGENCY T VISIT PHYS INC MODERATE SEVERITY EMERGENCY 49879 [facility] 8 8 N [facility] T VISIT HOSPITAL LOW/MODER SEVERITY OFFICE 55219 [facility] 8 8 PATRICIA Jewell T VISIT 25 MINUTES EMERGENCY 50635 [facility] 8 8 MYAH [place] [facility] EMERGENCY LAKESHA T VISIT PHYS INC M HIGH/URGE NT SEVERITY EMERGENCY 30036 [facility] 8 MYAH [facility] VISIT EMERGENCY A HIGH PHYS INC SEVERITY& THREAT FUNCJ EMERGENCY 39007 [facility] 8 8 N [facility] T VISIT HOSPITAL MODERATE SEVERITY HOSPITAL [facility] - [facility] 51140 [facility], 8 8 [facility] T VISIT PHYS INC MODERATE SEVERITY EMERGENCY 50235 [facility], 8 8 MYAH [place] [facility] EMERGENCY A T VISIT PHYS INC MODERATE SEVERITY EMERGENCY 44636 [facility], 8 8 [facility] T VISIT PHYS INC MODERATE SEVERITY EMERGENCY 17065 [facility] 8 8 N [facility] VISIT [facility] LIMITED/M INOR [facility] 43304 [facility] 8 8 MYAH ANDREW Magallon [facility] EMERGENCY T VISIT PHYS INC MODERATE SEVERITY
--- OUTSIDE RECORDS SUMMARY | 2017-08-16 10:29 | External Medical Summary Rpt | CCD ---
Author Author , KAVIN Organization KAVIN Address Unknown Phone [email or web address] Care Team Providers Care Residential Treatment Counselor Name Role Phone MAGDA TONYA, MADGA Unavailable Unavailable TONYA AHMED, EID A, Unavailable Unavailable AHMED, EID A Arden RUIZ, Unavailable Unavailable Arden RUIZ, FRANSICO KENNEDY Unavailable Unavailable SPICER, SPICER Unavailable Unavailable SPICER ALL, SPCIER ALL Unavailable Unavailable CELLAROSI - YORBA Unavailable Unavailable PAT, CELLAROSI - YORBA PAT CELLAROSI - YORBA, Unavailable Unavailable LAKESHA Dunn, CELLAROSI - YORBA, LIANET PERALTA, BEHZAD, Unavailable Unavailable LIANET [facility], Unavailable Unavailable [facility] LEANDER CARTER, LEANDER CARTER Unavailable Unavailable RUDY GRANT Unavailable Unavailable [facility], Unavailable Unavailable [facility] TERRANCE, THADDEUS, TERRANCE, Unavailable Unavailable THADDEUS XIMENA CARRIZALES DEPA, Unavailable Unavailable TOM EWING Unavailable Unavailable CELY [facility] Unavailable Unavailable GROUP P, [facility] P [facility] Unavailable Unavailable MEDICAL, [facility] JR RASMUSSEN FULLER, Unavailable Unavailable JR [facility] Unavailable Unavailable HOSPITAL, [facility] Unavailable Unavailable HOSPITA, [facility] JOSSELIN RHO, JOSSELIN Unavailable Unavailable RHO HAJIBRAHIM SANJUANA, Unavailable Unavailable HAJIBRAHIM SANJUANA KATARZYNA MONIQUE, Unavailable Unavailable KATARZYNA MONIQUE ORTIZ CARRIE, ORTIZ Unavailable Unavailable CARRIE [facility], Unavailable Unavailable [facility] Unavailable Unavailable [facility], [facility] JR MARCIA HOOD, Unavailable Unavailable JR MARCIA HOOD, Unavailable Unavailable [facility] Unavailable Unavailable EMERGENCY, [facility] Unavailable Unavailable IM[facility]ING [facility], [facility] KOSTELIC, FERDINAND K, Unavailable Unavailable KOSTELIC, FERDINAND K MATAR RAC, MATAR RAC Unavailable Unavailable COLLAZO SEA, COLLAZO SEA Unavailable Unavailable OZOR MAR, OZOR MAR Unavailable Unavailable [facility], [facility], [facility] RACE, JANI F, RACE, Unavailable Unavailable JANI F RADMANESH, RADMANESH Unavailable Unavailable RADMANESH SHA, Unavailable Unavailable RADMANESH SHA RENUSCH RASHIDA, RENUSCH Unavailable Unavailable Fanta DUPREE N, Fanta SANCHEZ Unavailable Unavailable N IRASEMA MANDEEP, IRASEMA MANDEEP Unavailable Unavailable KE YAN, KE YAN Unavailable Unavailable MACIAS MAR, MACIAS MAR Unavailable Unavailable [facility], Unavailable Unavailable [facility] Unavailable Unavailable EMERGENCY PHYS, [facility] Unavailable Unavailable EMERGENCY PHYSI, [facility], Unavailable Unavailable [facility] CANDACE BRADLEY, MARIA Unavailable Unavailable RYA BREWER RAY, BREWER Unavailable Unavailable PATRICIA MULTANI, Unavailable Unavailable PATRICIA ROSEN PHILLIP L, Unavailable Unavailable ANDREW DAVID SANDRO, TRISTON Unavailable Unavailable SANDRO ARIADNA MAT, ARIADNA MAT Unavailable Unavailable Purpose Continuity of Care Document - 12-09-2007 through 2016 Problems Code Diagnosis DOS Provider Status [id number] PAIN IN 06-13-2017 [facility] LEFT PHYSICIANS, SHOULDER [facility] [id number] SPONDYLOSIS 06-13-2017 [place] W/O MEDICAL MYELOPATH/R IMAGING ASS ADICULOPATH Y CERV RGN M542 CERVICALGIA 06-13-2017 [facility] PH[facility]IANS, [facility] R079 CHEST PAIN 06-13-2017 [place] UNSPECIFIED MEDICAL IMAGING ASS H89281 MIGRAINE 11-27-2016 [facility] INTRACT W/O INC STATUS MIGRAINOSUS Z720 TOBACCO USE 11-27-2016 [facility] INC L739 FOLLICULAR 11-21-2016 [facility] DISORDER PHYSICIANS, UNSPECIFIED [facility] [id number] PAIN IN 10-07-2016 [place] RIGHT MEDICAL SHOULDER IMAGING ASS [id number] CONTUSION 10-07-2016 [facility] RT FRONT PHYSICIANS, WALL THORAX PLLC INITIAL ENCOUNTER I90941M CONTUSION 10-07-2016 SAR[facility] OF RIGHT PHYSICIANS, SHOULDER PLL INITIAL ENCOUNTER G7084NF UNS INJURY 10-07-2016 [place] RT SHOULDER MEDICAL UPPER ARM IMAGING ASS INITIAL ENCNTR [id number] BURN 2ND 08-20-2016 [facility] DEGREE LT PHYSICIANS, LOWER LEG PLLC INITIAL ENCOUNTER M545 LOW BACK 07-09-2016 [place] PAIN MEDICAL IMAGING ASS Y383PIX SPRAIN 07-09-2016 [facility] LUMBAR INC SPINE INITIAL ENCOUNTER [id number] STRAIN 07-09-2016 [facility] MUSCLE PHYSICIANS, FASCIA & PLLC TENDON LOW BACK INITIAL H6993UG UNSPECIFIED 07-09-2016 [place] INJURY MEDICAL LOWER BACK IMAGING ASS INITIAL ENCOUNTER [id number] UNSPECIFIED 05-30-2016 [facility] SPRAIN LT N EMERGENCY SHOULDER PHYS JOINT INITIAL ENC Y93F2 ACTIVITY 05-30-2016 [facility] CAREGIVING N EMERGENCY LIFTING PHYS P83175 PAIN IN 05-27-2016 [place] RIGHT KNEE MEDICAL IMAGING ASS [id number] SPRAIN 05-15-2016 [facility] OTHER SPEC PHYSICIANS, PARTS RIGHT PLLC KNEE INITIAL ENC M2391 UNSPECIFIED 04-09-2016 [facility] INTERNAL RADIOLOGY DERANGEMENT GROUP P OF RIGHT KNEE N63 UNSPECIFIED 03-04-2016 [facility] IN COMMUNTIY BREAST HOSPITA N6489 OTHER 03-04-2016 [facility] [place] SPECIFIED RADIOLOGY DISORDERS OF BREAST R928 OTH ABNORM 03-04-2016 [facility] & COMMUNTIY INCONCLUSIV HOSPITA E FIND ON DX IMAG BREAST Z043 ENCOUNTER 02-06-2016 [facility] EXAM & RADIOLOGY OBSERVATION GROUP P FOLLOW OTH ACCIDENT U05173 CHRONIC 01-21-2016 [facility] MIGRAINE N EMERGENCY W/O AURA PHYS NOT INTRACT W/O SM R590 LOCALIZED 12-23-2015 [facility] ENLARGED COMMUNTIY LYMPH NODES HOSPITA R591 GENERALIZED 12-23-2015 [facility] ENLARGED N EMERGENCY LYMPH NODES PHYS R72883M CONTUSION 11-17-2015 [place] OF LEFT REGIONAL SHOULDER MEDICAL INITIAL ENCOUNTER R0789 OTHER CHEST 08-03-[address] [facility] EMERGENCY 7265 ENTHESOPATH 06-01-2015 [facility] Y OF HIP [facility] EMERGENCY 07170 OBSTRUCTIVE 05-13-2015 [facility] CHRONIC N EMERGENCY BRONCHITIS PHYS WITH EXACERBATIO N 7862 COUGH 05-13-2015 [facility] [place] [facility] 47783 PAIN IN 05-04-2015 [facility] JOINT N EMERGENCY PELVIC PHYS REGION AND THIGH 69000 NONTRAUMATI 05-04-2015 [facility] C HEMATOMA N EMERGENCY OF SOFT PHYS TISSUE 0539 HERPES 03-21-2015 [facility] ZOSTER N EMERGENCY WITHOUT PHYS MENTION OF COMPLICATIO N 7177 CHONDROMALA 12-04-2014 [facility] MANA OF RADIOLOGY PATELLA 16218 PAIN IN 12-04-2014 [facility] JOINT, COMMUNTIY LOWER LEG HOSPITA 60010 PAIN IN 10-30-2014 [facility] JOINT, N EMERGENCY SHOULDER PHYS REGION 8449 SPRAIN&STRA 10-09-2014 [facility] IN OF N EMERGENCY UNSPECIFIED PHYS SITE OF KNEE&LEG E9288 OTHER 10-09-2014 [facility] ACCIDENT N EMERGENCY PHYS 13983 VOMITING 07-21-2014 [facility] ALONE N EMERGENCY PHYSI 9114 TRNK INSECT 07-05-2014 [facility] BITE N EMERGENCY NONVENOMOUS PHYSI WITHOUT MENTION INF 9124 SHLDR&UP 07-05-2014 [facility] ARM INSECT N EMERGENCY BITE PHYSI NONVENOMOUS W/O INF E9064 BITE OF 07-05-2014 [facility] NONVENOMOUS N EMERGENCY ARTHROPOD PHYSI 11830 MIGRAINE 06-16-2014 [facility] UNSP W/O N EMERGENCY INTRACT W/O PHYSI STATUS MIGRAINOSUS 4658 ACUTE URIS 06-14-2014 [facility] OF OTHER N EMERGENCY MULTIPLE PHYS SITES 52990 NAUSEA WITH 06-14-2014 [facility] VOMITING N EMERGENCY PHYS 32534 DIARRHEA 04-21-2014 [facility] N EMERGENCY PHYSI 85302 ABDOMINAL 04-21-2014 [facility] PAIN, N EMERGENCY UNSPECIFIED PHYSI SITE 7231 CERVICALGIA 02-18-2014 [facility] 09312 DEHYDRATION 01-21-2014 [facility] N EMERGENCY PHYSI 59093 UNSPEC 12-09-2013 [facility] BURSAE&TEND ONS SHOULDER REGION 12875 CONTUSION 12-09-2013 [facility] REGION 7241 PAIN IN 05-30-2008 [facility] [place] THORACIC RADIOLOGY SPINE 7840 HEADACHE 05-30-2008 [facility] RADIOLOGY 8409 SPRAIN&STRA 05-30-2008 [facility] IN UNSPEC N EMERGENCY SITE PHYS INC SHOULDER&UP PER ARM 8470 NECK SPRAIN 05-30-2008 [facility] AND STRAIN N EMERGENCY PHYS INC 8471 THORACIC 05-30-2008 [facility] SPRAIN AND N EMERGENCY STRAIN PHYS INC 28919 INJURY OF 05-30-2008 [facility] [place] FACE AND RADIOLOGY NECK OTHER AND UNSPECIFIED E8809 ACCIDENTAL 05-30-2008 [facility] FALL ON OR N EMERGENCY FROM OTHER PHYS INC STAIRS OR STEPS 4550 INTERNAL 05-10-2008 [facility] HEMORRHOIDS COMMUNITY WITHOUT HOSPITAL MENTION COMP 5693 HEMORRHAGE 05-10-2008 [facility] RECTUM NKLIN, AND ANUS ROLANDO 14933 ABDOMINAL 05-10-2008 [facility] PAIN OTHER COMMUNITY SPECIFIED HOSPITAL SITE 57998 ABDOMINAL 04-18-2008 SIL[facility], PAIN RIGHT PATRICIA C LOWER QUADRANT 39295 ABDOMINAL 04-18-2008 SILAS, PAIN, LEFT PATRICIA C LOWER QUADRANT 5990 URINARY 04-07-2008 [facility] SITE NOT SPECIFIED 4739 UNSPECIFIED 04-03-2008 [facility] SINUSITIS N EMERGENCY PHYS INC 2768 HYPOPOTASSE 03-23-2008 [facility] DEEPALI N EMERGENCY PHYS INC 96651 CALCU 03-23-2008 [facility] GALLBLADD N EMERGENCY W/O MENTION PHYS INC CHOLECYST/O BST 6238 OTHER 03-23-2008 [facility] SPECIFIED N EMERGENCY NONINFLAMMA PHYS INC TORY DISORDER VAGINA 96874 PAIN IN 03-03-2008 [facility] [place] JOINT, RADIOLOGY ANKLE AND FOOT 43173 UNSPECIFIED 03-03-2008 [facility] SITE OF N EMERGENCY ANKLE PHYS INC SPRAIN AND STRAIN E8490 PLACE OF 03-03-2008 [facility] E927 OVEREXERTIO 03-03-2008 [facility] N&STRENUOUS N EMERGENCY &REPETITIVE PHYS INC MVMNTS/LOAD S 7242 LUMBAGO 02-25-2008 [facility] N EMERGENCY PHYS INC V642 SURG/OTH 12-21-2007 [facility] PROC NOT COMMUNITY CARRIED OUT HOSPITAL BECAUSE PTS DECN 84009 UNSPECIFIED 12-09-2007 [facility] VIRAL N EMERGENCY INFECTION PHYS INC [...] PH AR MA CY #0 54 37 MN 65 09 10 15 5 00 KE [...] ve LO 16 20 20 91 [place] MN 90 17 17 36 AM 1 97 [...] PH AR MA CY #0 54 37 MN 65 09 10 15 5 00 KE [...] PH AR MA CY #0 54 37 MN 65 08 09 15 5 00 KE [...] ER 23 32 75 MG CA P MN 00 08 09 19 10 00 CV [...] ve LO 16 20 20 35 AR MN 90 17 17 98 MA AM 1 [...] ve LO 16 20 20 35 AR MN 90 17 17 98 MA AM 1 26 CY 10 #0 23 MG 32 TA BL ET ES 16 06 07 30 30 00 CV Ac CI 72 -1 -2 .0 00 S ti TA 90 9- 1- 00 01 PH ve LO 16 20 20 35 AR MN 90 17 17 98 MA AM 1 [...] MC 32 G IN OROZCO LE R MN 00 06 07 10 5 00 WA [...] ve LO 16 20 20 29 AR MN 90 17 17 49 MA AM 1 00 CY 10 #0 23 MG 32 TA BL ET CY 68 05 06 12 4 00 WA Ac CL 64 -1 -0 .0 00 L- ti OB 50 5- 9- 00 07 MA ve EN 51 20 20 48 RT ZA 89 17 17 79 MN 0 62 PH IN AR E MA 10 CY MG #5 91 TA BL ET NA 65 05 06 20 10 00 WA Ac MN 16 -1 -0 .0 00 L- ti [...] ve LO 16 20 20 29 AR MN 90 17 17 49 MA AM 1 [...] ve LO 16 20 20 29 AR MN 90 17 17 49 MA AM 1 [...] 03 03 30 30 00 CV Ac MN 37 -0 -3 .0 00 S ti [...] ve LO 16 20 20 29 AR MN 90 17 17 49 MA AM 1 [...] 02 03 30 30 00 CV Ac MN 37 -0 -1 .0 00 S ti [...] ve LO 16 20 20 29 AR MN 90 17 17 49 MA AM 1 00 CY 10 #0 23 MG 32 TA BL ET BU 10 01 02 30 30 00 CV Ac MN 37 -1 -1 .0 00 S ti [...] 01 02 30 15 00 CV Ac MN 16 -2 -1 .0 00 S ti [...] ve LO 16 20 20 18 AR MN 90 16 17 04 MA AM 1 [...] 08 08 MA TA 0 CY D DE F N- 23 CA 32 FF 50 [...] 00 60 30 CV 14 AT Ac MN 37 -1 -2 .0 S 93 CH [...] 08 08 MA TA 0 CY D DE F N- 23 CA 32 FF 50 [...] 00 30 30 CV 14 AT Ac MN 37 -1 -0 .0 S 14 CH [...] MG 23 D 32 TA BL ET MN 00 07 07 00 12 3 CV [...] 00 10 5 CV 12 No Ac MN 09 -3 -0 .0 S 81 t [...] ai ZA 11 08 08 MA la MN 0 CY bl IN e E 23 10 32 MG TA BL ET NA 00 05 05 00 12 6 CV 11 No Ac MN 09 -0 -2 .0 S 98 t [...] 0- 2- [address] ve MN 50 20 20 AR S AM 91 [...] 0- 4- 00 PH 53 Av ve MN 50 20 20 AR ai AM 91 08 08 MA la 3 CY bl HB e R 23 40 32 MG TA BL ET CI 57 03 04 00 30 30 CV 10 No Ac TA 66 -2 -1 .0 S 64 t ti LO 40 0- 7- 00 PH 53 Av ve MN 50 20 20 AR ai AM 91 [...] Procedure DOS Code Location Performer Comment RADIOLOGI 25265 [facility] C EXAM 7 MEDICAL CHEST 2 IMAGING VIEWS ASS FRONTAL&L ATERAL RADEX 81470 [facility] 7 MEDICAL COMPLETE IMAGING MINIM[place] [address] [place] [address] [facility] CERVICAL 7 MEDICAL SPINE W/O IMAGING CONTRAST ASS MATERIAL THERAPEUT 21846 [facility] KAY IC 7 MEM HOSP [facility]OS[facility] PROPHYLAC INC INC TIC/DX INJECTION SUBQ/IM RADEX 51971 [facility] SH[facility] 7 RADIOLOGY COMPLETE MINIMUM 2 VIEWS RADEX 61115 [facility] SHOULDER 6 MEDICAL COMPLETE IMAGING MINIMUM 2 ASS VIEWS RADEX 68858 [place] SPICER CLAVICLE 6 MEDICAL COMPLETE IMAGING ASS RADEX 66725 [facility] ALL SPINE 6 MEDICAL LUMBOSACR IMAGING AL ASS MINIMUM 4 VIEWS RADEX 23208 [facility] [place] RADMANESH SHOULDER 6 RADIOLOGY SHA COMPLETE MINIMUM 2 VIEWS MRI ANY 98451 [place] SPICER ALL JT LOWER 6 MEDICAL EXTREM IMAGING W/O ASS CONTRAST MATRL RADIOLOGI 40880 [facility] C 6 N EXAMINATI RADIOLOGY ON KNEE 3 GROUP P VIEWS DIAGNOSTI G0204 [facility] C 6 N N MAMMOGRAP COMMUNTIY COMMUNTIY HY INCL HOSPITA HOSPITA CAD WHEN PERF; BILAT US BREAST 35651 [facility] UNI REAL 6 N N TIME COMMUNTIY COMMUNTIY WITH HOSPITA HOSPITA IMAGE COMPLETE COMPUTER- 70114 [facility] AIDED 6 N N DETECTION COMMUNTIY COMMUNTIY DX HOSPITA HOSPITA MAMMOGRAP HY RADEX 99769 [facility] IRASEMA MANDEEP SPINE 6 N LUMBOSACR RADIOLOGY AL 2/3 GROUP P VIEWS INJECTION J1885 [facility] 6 N N KETOROLAC COMMUNTIY COMMUNTIY HOSPITA HOSPITA TROMETHAM INE PER 15 MG INFUSION J7030 [facility] NORMAL 6 N N SALINE COMMUNTIY COMMUNTIY SOLUTION HOSPITA HOSPITA 1000 CC RADEX 80082 [facility] SCAPULA 6 REGIONAL REGIONAL COMPLETE MEDICAL MEDICAL RADEX 26545 [facility] SHOULDER 6 REGIONAL REGIONAL COMPLETE MEDICAL MEDICAL MINIMUM 2 VIEWS RADIOLOGI 85879 RADIOLOGY IRASEMA KAUFMAN C 5 EXAMINATI ASSOCIATE ON CHEST S OF OZZIE SINGLE VIEW FRONTAL RADIOLOGI 37021 [facility] [place] JOSSEL[place] C EXAM 5 RADIOLOGY RHO CHEST 2 VIEWS FRONTAL&L ATERAL RADEX HIP 80684 [facility] [place] HAJIBRAHI 5 RADIOLOGY M SANJUANA UNILATERA L COMPLETE MINIMUM 2 [place] [address] [facility] [place] JOSSEL[place] JT LOWER 5 RADIOLOGY RHO EXTREM W/O CONTRAST MATRL RADIOLOGI 51575 [facility] [place] ORTIZ C EXAM 4 RADIOLOGY CARRIE KNEE COMPLETE 4/MORE VIEWS RADEX 63003 [facility] [place] MAGDA SHOULDER 4 RADIOLOGY TONYA COMPLETE MINIMUM 2 VIEWS RADEX 88209 [facility] [place] ARIADNA MAT SPINE 4 RADIOLOGY CERVICAL [address] [place] [address] [facility] [place] BREWER ABDOMEN & 4 RADIOLOGY RAY PELVIS W/O CONTRAST MATERIAL RADEX [address] COMPLETE MINIMUM 2 VIEWS RADEX 95085 [facility] [place] JOSEPH, SHOULDER 8 RADIOLOGY J COMPLETE MINIM[address] [place] [address] [facility] [place] KAYDEN, MAXILLOFA 8 RADIOLOGY KATARZYNA D CIAL W/O CONTRAST MATERIAL RADEX 88607 [facility] [place] JOSEPH, SPINE 8 RADIOLOGY J CERVICAL 2 OR 3 VIEWS RADEX 17992 [facility] [place] JOSEPH, SPINE 8 RADIOLOGY J THORACIC 2 VIEWS ANES 04001 [place] DEPA, LOWER 8 ANESTHESI XIMENA INTESTINE A GROUP PSC ENDOSCOPY DISTAL DUODENUM COLONOSCO 69846 [facility] PY FLX DX 8 N N W/COLLJ [facility] SPEC WHEN HOSPITAL HOSPITAL PFRMD UNLISTED 55206 [facility] ANESTHESI 8 N N A [facility] PROCEDURE [facility] URNLS DIP [address] TH[address] STICK/TAB E CENTER LET RGNT AUTO W/O MICROSCOP Y CUL BACT 66620 [facility] XCPT 8 N N URINE [facility] BLOOD/[facility] [place] [address] [facility] STREPTOCO 8 N N CCUS [facility] CT PELVIS 38399 [facility] [place] KOSTELIC, W/O 8 [place] [address] [facility] [place] KOSTELIC, ABDOMEN 8 RADIOLOGY FERDINAND K W/O CONTRAST MATERIAL RADEX 14539 [facility] ANKLE 8 N N COMPLETE [facility] 3 IRA [facility] VIEWS RADIOLOGI 96538 [facility] Fanta BROWN 8 RADIOLOGY N EXAMINATI ON ANKLE 2 VIEWS Encounters Encounter Start End Date Code Location Performer Type Date EMERGENCY 95625 SARAH RASMUSSEN, 7 7 PHYSICIAN JR WATSON S, [facility] VISIT HIGH/URGE NT SEVERITY OFFICE 37874 [facility] ESCOBEDO 7 7 [facility] T NEW 20 INC MINUTES HOSPITAL [facility] 7 7 [facility] OUTPATIEN INC T EMERGENCY 41452 SARAH RASMUSSEN 7 7 PHYSICIAN JR WATSON S, [facility] T VISIT MODERATE SEVERITY EMERGENCY 63976 [facility] 7 7 [facility] T VISIT LOW/MODER SEVERITY HOSPITAL [facility] - 7 7 N OUTPATIEN COMMUNTIY T HOSPITA EMERGENCY 08959 [facility] 7 7 N [facility] MODERATE SEVERITY HOSPITAL [facility] - 6 6 [facility] 18845 SARAH BELLO 6 6 PHYSICIAN Karen [facility] S, [facility] T VISIT HIGH/URGE NT SEVERITY EMERGENCY 44877 [facility] 6 6 [facility] T VISIT LIMITED/M INOR PROB EMERGENCY 36462 SARAH DEAN 6 6 PHYSICIAN RASHIDA WATSON S, [facility] T VISIT MODERATE SEVERITY EMERGENCY 23090 [facility] 6 6 [facility] INC T VISIT LIMITED/M INOR PROB EMERGENCY 72770 SARAH BELLO 6 6 PHYSICIAN Karen [facility] S, [facility] T VISIT MODERATE SEVERITY HOSPITAL [facility] - 6 6 [facility] OUTPATIEN [facility] T EMERGENCY 08044 [facility] 6 6 [facility] T VISIT PHYS MODERATE SEVERITY HOSPITAL [facility] - 6 6 [facility] 54852 [facility] 6 6 [facility] DEPARTMEN INC T VISIT LOW/MODER SEVERITY EMERGENCY 04916 SARAH DEAN 6 6 [facility] Gissell [facility] T VISIT MODERATE SEVERITY EMERGENCY 72774 INDERJIT HUNT 6 6 MEDICAL DEPARTMEN SERVICES T VISIT MODERATE SEVERITY HOSPITAL [facility] - 6 6 N OUTPATIEN COMMUNTIY T HOSPITA EMERGENCY 38100 LIZ CAMACHOSON DEPT 6 6 KAMINI [facility] VISIT HIGH EMERGENCY SEVERITY& THREAT FUNCJ EMERGENCY 11798 [facility] 6 6 N DEPARTMEN COMMUNTIY T VISIT HOSPITA MODERATE SEVERITY EMERGENCY 92142 [facility] 6 6 MYAH DEPARTMEN EMERGENCY T VISIT PHYS HIGH/URGE NT SEVERITY HOSPITAL [facility] - 6 6 N OUTPATIEN COMMUNTIY T HOSPITA EMERGENCY 09099 [facility] CELLAROSI 6 6 MYAH - YORBA DEPARTMEN EMERGENCY PAT T VISIT PHYS MODERATE SEVERITY HOSPITAL [facility] - 6 6 N OUTPATIEN COMMUNTIY T HOSPITA EMERGENCY 19436 [facility] 6 6 N DEPARTMEN COMMUNTIY T VISIT HOSPITA LOW/MODER SEVERITY EMERGENCY 54444 [facility] 6 6 REGIONAL DEPARTMEN MEDICAL T VISIT MODERATE SEVERITY HOSPITAL [facility] - 6 6 REGIONAL OUTPATIEN MEDICAL T EMERGENCY 97260 JUNCANDACE MACIAS MAR DEPT [address] [facility] VISIT HIGH EMERGENCY SEVERITY& THREAT FUNCJ EMERGENCY 71226 LIZ TABOR TYL [address] [facility] DEPARTMEN T VISIT EMERGENCY HIGH/URGE NT SEVERITY EMERGENCY 10579 [facility] KE HEREDIA 5 5 MYAH DEPARTMEN EMERGENCY T VISIT PHYS MODERATE SEVERITY EMERGENCY 01342 [place] SANTOS 5 5 MYAH CELY DEPARTMEN EMERGENCY T VISIT PHYS MODERATE SEVERITY EMERGENCY 87089 [facility] FRANS[place] JAM 5 5 MYAH DEPARTMEN EMERGENCY T VISIT PHYS MODERATE SEVERITY HOSPITAL [facility] - 5 5 N OUTPATIEN COMMUNTIY T HOSPITA EMERGENCY 70667 [facility] TRISTON 5 5 MYAH SANDRO DEPARTMEN EMERGENCY T VISIT PHYS MODERATE SEVERITY EMERGENCY 01835 [facility] TRI[facility] 4 4 MYAH SANDRO DEPARTMEN EMERGENCY T VISIT PHYS MODERATE SEVERITY EMERGENCY 40945 [facility] DEPT 4 4 MYAH SCO VISIT EMERGENCY HIGH PHYSI SEVERITY& THREAT FUNCJ EMERGENCY 34673 [facility] SERAOR MAR 4 4 MYAH DEPARTMEN EMERGENCY T VISIT PHYSI HIGH/URGE NT SEVERITY EMERGENCY 46225 [facility] CELLAROSI 4 4 MYAH - YORBA DEPARTMEN EMERGENCY PAT T VISIT PHYSI MODERATE SEVERITY EMERGENCY 10644 [facility] TOM 4 4 MYAH CELY DEPARTMEN EMERGENCY T VISIT PHYSI HIGH/URGE NT SEVERITY EMERGENCY 64396 [facility] MARIA 4 4 MYAH RYA DEPARTMEN EMERGENCY T VISIT PHYS HIGH/URGE NT SEVERITY EMERGENCY [address] [facility] 4 4 MYAH SCO DEPARTMEN EMERGENCY T VISIT PHYSI HIGH/URGE NT SEVERITY EMERGENCY [address] [facility] 4 4 MYAH SCO DEPARTMEN EMERGENCY T VISIT PHYSI MODERATE SEVERITY EMERGENCY 03955 [facility] SERAOR MAR DEPT 4 4 MYAH VISIT EMERGENCY HIGH PHYSI SEVERITY& THREAT FUNCJ EMERGENCY 60683 [facility] 4 4 HOSPITAL DEPARTMEN T VISIT MODERATE SEVERITY HOSPITAL [facility] - 4 4 HOSPITAL OUTPATIEN T EMERGENCY 39753 [facility], 8 8 MYAH LIANET DEPARTMEN EMERGENCY T VISIT PHYS INC HIGH/URGE NT SEVERITY EMERGENCY [id number] [facility], 8 8 MYAH JANI Gomez DEPARTMEN EMERGENCY T VISIT PHYS INC MODERATE SEVERITY HOSPITAL [facility] 8 [facility] [id number] [facility], 8 8 [facility]IT PHYS INC MODERATE SEVERITY OFFICE [id number] [facility], [facility] 8 8 PATRICIA Jewell T VISIT 15 MINUTES OFFICE 12299 [facility] 8 8 ADIS THADDEUS T VISIT E CENTER 15 MINUTES OFFICE 35093 SILAS, [facility] 8 8 PATRICIA Jewell T VISIT 15 MINUTES HOSPITAL [facility] 8 8 [facility] [id number] [facility], 8 8 MYAH ANDREW Magallon DEPARTMEN EMERGENCY T VISIT PHYS INC MODERATE SEVERITY EMERGENCY 74494 [facility] 8 8 N [facility] T VISIT HOSPITAL LOW/MODER SEVERITY OFFICE [id number] [facility] 8 8 PATRICIA Jewell T VISIT 25 MINUTES EMERGENCY 94226 [facility] 8 8 MYAH [place] [facility] EMERGENCY LAKESHA T VISIT PHYS INC M HIGH/URGE NT SEVERITY EMERGENCY 32257 [facility] MYAH [place] VISIT EMERGENCY A HIGH PHYS INC SEVERITY& THREAT FUNCJ EMERGENCY [id number] [facility] 8 8 N [facility] T VISIT HOSPITAL MODERATE SEVERITY HOSPITAL [facility] - 8 [facility] 70241 [facility], 8 8 [facility] VISIT PHYS INC MODERATE SEVERITY EMERGENCY 15136 [facility], 8 8 MYAH [place] [facility] EMERGENCY A T VISIT PHYS INC MODERATE SEVERITY EMERGENCY 06735 [facility], 8 8 [facility] PHYS INC MODERATE SEVERITY EMERGENCY 49135 [facility] 8 8 N [facility] 87481 [facility] 8 8 MYAH ANDREW [place] [facility] EMERGENCY T VISIT PHYS INC MODERATE SEVERITY
--- OUTSIDE RECORDS SUMMARY | 2017-08-16 10:35 | External Medical Summary Rpt | CCD ---
Author Author , KAVIN VALE Address Unknown Phone [email or web address] Care Team Providers Care Multimedia Services Coordinator Name Role Phone MAGDA TONYA, MAGDA Unavailable Unavailable TONYA STANTON LIN, Unavailable Unavailable STANTON LIN J, Unavailable Unavailable Arden RUIZ, FRANSICO KENNEDY Unavailable Unavailable SPICER, SPICER Unavailable Unavailable SPICER ALL, SPICER ALL Unavailable Unavailable CELLAROSI - YORBA Unavailable Unavailable PAT, CELLAROSI - YORBA PAT CELLAROSI - YORBA, Unavailable Unavailable LAKESHA Dunn, CELLAROSI - YORBWanda, LIANET PERALTA CLARK, Unavailable Unavailable LIANET [facility], Unavailable Unavailable [facility] LEANDER CARTER, LEANDER CARTER Unavailable Unavailable RUDY GRANT Unavailable Unavailable [facility], Unavailable Unavailable [facility] THADDEUS CARLOS DABNEY, Unavailable Unavailable XIMENA LUGO DEPA, Unavailable Unavailable TOM EWING Unavailable Unavailable [facility] Unavailable Unavailable GROUP P, [facility] Unavailable Unavailable MEDICAL, [facility] MEDICAL JR RASMUSSEN FULLER, Unavailable Unavailable [facility] Unavailable Unavailable HOSPITAL, [facility] Unavailable Unavailable HOSPITA, [facility] JOSSELIN RHO, JOSSELIN Unavailable Unavailable RHO KATARZYNA MONIQUE, Unavailable Unavailable KATARZYNA MONIQUE HARPER Unavailable Unavailable [facility], Unavailable Unavailable [facility] Unavailable Unavailable [facility], [facility] JR MARCIA HOOD, Unavailable Unavailable JR MARCIA HOOD, Unavailable Unavailable [facility] Unavailable Unavailable EMERGENCY, [facility] Unavailable Unavailable IMAGING ASS, [facility] FERDINAND PEREIRA, Unavailable Unavailable [facility]IN[facility] PEREIRA MATAR RAC, MATAR RAC Unavailable Unavailable COLLAZO SEA, COLLAZO SEA Unavailable Unavailable OZOR, OZOR Unavailable Unavailable OZOR MAR, OZOR MAR Unavailable Unavailable [facility], Unavailable [facility]available [facility], [facility] RACE, JANI F, RACE, Unavailable Unavailable JANI KEY, YESI Unavailable Unavailable RADMANESH SHA, Unavailable Unavailable RADMAN[facility] SHA RENUSCH RASHIDA, RENUSCH Unavailable Unavailable RASHIDA LAURA, C N, LAURA, C Unavailable Unavailable N IRASEMA MANDEEP, IRASEMA MANDEEP Unavailable Unavailable KE YAN, KE YAN Unavailable Unavailable MACIAS MAR, MACIAS MAR Unavailable Unavailable SOTINGEANU MALIK, Unavailable Unavailable [facility] Unavailable Unavailable EMERGENCY PHYS, [facility] Unavailable Unavailable EMERGENCY PHYSI, [facility]SI [facility], Unavailable Unavailable [facility] CANDACE BRADLEY, CANDACE Unavailable Unavailable RYA BREWER RAY, BREWER Unavailable Unavailable PATRICIA MULTANI, Unavailable Unavailable PATRIICA ROSEN PHILLIP L, Unavailable Unavailable ANDREW DAVID TRISTON SANDRO, TRISTON Unavailable Unavailable SANDRO ARIADNA MAT, ARIADNA MAT Unavailable Unavailable Purpose Continuity of Care Document - 12-09-2007 through 2016 Problems Code Diagnosis DOS Provider Status [id number] PAIN IN 06-13-2017 [facility] LEFT [facility]IC[facility]ANS, SHOULDER PLLC [id number] SPONDYLOSIS 06-13-2017 [facility] W/O MEDICAL MYELOPATH/R IMAGING ASS ADICULOPATH Y CERV RGN M542 CERVICALGIA 06-13-2017 [facility] R079 CHEST PAIN 06-13-2017 [facility] UNSPECIFIED MEDICAL IMAGING ASS [id number] MIGRAINE 11-27-2016 [facility] INTRACT W/O INC STATUS MIGRAINOSUS Z720 TOBACCO USE 11-27-2016 [facility] INC L739 FOLLICULAR 11-21-2016 [facility] DISORDER PHYSICIANS, UNSPECIFIED PLLC Q24833 PAIN IN 10-07-2016 [facility] RIGHT MEDICAL SHOULDER IMAGING ASS [id number] CONTUSION 10-07-2016 [facility] RT FRONT PHYSICIANS, WALL THORAX PLLC INITIAL ENCOUNTER [id number] CONTUSION 10-07-2016 [facility] OF RIGHT PHYSICIANS, SHOULDER PLLC INITIAL ENCOUNTER X6613FM UNS INJURY 10-07-2016 [place] RT SHOULDER MEDICAL UPPER ARM IMAGING ASS INITIAL ENCNTR F28040G BURN 2ND 08-20-2016 [facility] DEGREE LT PHYSICIANS, LOWER LEG PLLC INITIAL ENCOUNTER M545 LOW BACK 07-09-2016 [facility] PAIN MEDICAL IMAGING ASS H346SGC SPRAIN 07-09-2016 [facility] LUMBAR INC SPINE INITIAL ENCOUNTER [id number] STRAIN 07-09-2016 [facility] MUSCLE PHYSICIANS, FASCIA & PLLC TENDON LOW BACK INITIAL [id number] UNSPECIFIED 07-09-2016 [facility] INJURY MEDICAL LOWER BACK IMAGING ASS INITIAL ENCOUNTER [id number] UNSPECIFIED 05-30-2016 [facility] SPRAIN LT N EMERGENCY SHOULDER PHYS JOINT INITIAL ENC Y93F2 ACTIVITY 05-30-2016 [facility] CAREGIVING N EMERGENCY LIFTING PHYS S90632 PAIN IN 05-27-2016 [place] RIGHT KNEE MEDICAL IMAGING ASS [id number] SPRAIN 05-15-2016 [facility] OTHER SPEC PHYSICIANS, PARTS RIGHT PLLC KNEE INITIAL ENC M2391 UNSPECIFIED 04-09-2016 [facility] INTERNAL RADIOLOGY DERANGEMENT GROUP P OF RIGHT KNEE N63 UNSPECIFIED 03-04-2016 [facility] LUMP IN COMMUNTIY BREAST HOSPITA N6489 OTHER 03-04-2016 [facility] [place] SPECIFIED RADIOLOGY DISORDERS OF BREAST R928 OTH ABNORM 03-04-2016 [facility] & COMMUNTIY INCONCLUSIV HOSPITA E FIND ON DX IMAG BREAST Z043 ENCOUNTER 02-06-2016 [facility] EXAM & RADIOLOGY OBSERVATION GROUP P FOLLOW OTH ACCIDENT [id number] CHRONIC 01-21-2016 [facility] MIGRAINE N EMERGENCY W/O AURA PHYS NOT INTRACT W/O SM R590 LOCALIZED 12-23-2015 [facility] ENLARGED COMMUNTIY LYMPH NODES HOSPITA R591 GENERALIZED 12-23-2015 [facility] ENLARGED N EMERGENCY LYMPH NODES PHYS [id number] CONTUSION 11-17-2015 [place] OF LEFT REGIONAL SHOULDER MEDICAL INITIAL ENCOUNTER R0789 OTHER CHEST 08-03-2015 [facility] PAIN [facility] EMERGENCY 7265 ENTHESOPATH 06-01-2015 [facility] Y OF HIP [facility] EMERGENCY 53593 OBSTRUCTIVE 05-13-2015 [facility] CHRONIC N EMERGENCY BRONCHITIS PHYS WITH EXACERBATIO N 7862 COUGH 05-13-2015 [facility] [place] [facility] 52261 PAIN IN 05-04-2015 [facility] JOINT N EMERGENCY PELVIC PHYS REGION AND THIGH 99125 NONTRAUMATI 05-04-2015 [facility] C HEMATOMA N EMERGENCY OF SOFT PHYS TISSUE 0539 HERPES 03-21-2015 [facility] ZOSTER N EMERGENCY WITHOUT PHYS MENTION OF COMPLICATIO N 7177 CHONDROMALA 12-04-2014 [facility] [place] MANA OF RADIOLOGY PATELLA 21721 PAIN IN 12-04-2014 [facility] JOINT, COMMUNTIY LOWER LEG HOSPITA 35121 PAIN IN 10-30-2014 [facility] JOINT, N EMERGENCY SHOULDER PHYS REGION 8449 SPRAIN&STRA 10-09-2014 [facility] IN OF N EMERGENCY UNSPECIFIED PHYS SITE OF KNEE&LEG E9288 OTHER 10-09-2014 [facility] ACCIDENT N EMERGENCY PHYS 88422 VOMITING 07-21-2014 [facility] ALONE N EMERGENCY PHYSI 9114 TRNK INSECT 07-05-2014 [facility] BITE N EMERGENCY NONVENOMOUS PHYSI WITHOUT MENTION INF 9124 SHLDR&UP 07-05-2014 [facility] BITE PHYSI NONVENOMOUS W/O INF E9064 BITE OF 07-05-2014 [facility] NONVENOMOUS N EMERGENCY ARTHROPOD PHYSI 52498 MIGRAINE 06-16-2014 [facility] UNSP W/O N EMERGENCY INTRACT W/O PHYSI STATUS MIGRAINOSUS 4658 ACUTE URIS 06-14-2014 [facility] OF OTHER N EMERGENCY MULTIPLE PHYS SITES 22681 NAUSEA WITH 06-14-2014 [facility] VOMITING N EMERGENCY PHYS 97251 DIARRHEA 04-21-2014 [facility] 33715 ABDOMINAL 04-21-2014 [facility] PAIN, N EMERGENCY UNSPECIFIED PHYSI SITE 7231 CERVICALGIA 02-18-2014 [facility] RADIOLOGY 80183 DEHYDRATION 01-21-2014 [facility] PH[facility] 52306 UNSPEC 12-09-2013 [facility] BURSAE&TEND ONS SHOULDER REGION 40800 CONTUSION 12-09-2013 [facility] REGION 7241 PAIN IN 05-30-2008 [facility] THORACIC RADIOLOGY SPINE 7840 HEADACHE 05-30-2008 [facility] RADIOLOGY 8409 SPRAIN&STRA 05-30-2008 [facility] IN UNSPEC N EMERGENCY SITE PHYS INC SHOULDER&UP PER ARM 8470 NECK SPRAIN 05-30-2008 [facility] AND STRAIN N EMERGENCY PHYS INC 8471 THORACIC 05-30-2008 [facility] SPRAIN AND N EMERGENCY STRAIN PHYS INC 79325 INJURY OF 05-30-2008 [facility] FACE AND RADIOLOGY NECK OTHER AND UNSPECIFIED E8809 ACCIDENTAL 05-30-2008 [facility] FALL ON OR N EMERGENCY FROM OTHER PHYS INC STAIRS OR STEPS 4550 INTERNAL 05-10-2008 [facility] HEMORRHOIDS COMMUNITY WITHOUT HOSPITAL MENTION COMP 5693 HEMORRHAGE 05-10-2008 [facility] OF RECTUM NKLIN, AND ANUS ROLANDO 70196 ABDOMINAL 05-10-2008 [facility] PAIN OTHER COMMUNITY SPECIFIED HOSPITAL SITE 55907 ABDOMINAL 04-18-2008 [facility], PAIN RIGHT PATRICIA C LOWER QUADRANT 83569 ABDOMINAL 04-18-2008 [facility], PAIN, LEFT PATRICIA C LOWER QUADRANT 5990 URINARY 04-07-2008 [facility] SITE NOT SPECIFIED 4739 UNSPECIFIED 04-03-2008 [facility] SINUSITIS N EMERGENCY PHYS INC 2768 HYPOPOTASSE 03-23-2008 [facility] DEEPALI N EMERGENCY PHYS INC 90295 CALCU 03-23-2008 [facility] GALLBLADD N EMERGENCY W/O MENTION PHYS INC CHOLECYST/O BST 6238 OTHER 03-23-2008 [facility] SPECIFIED N EMERGENCY NONINFLAMMA PHYS INC TORY DISORDER VAGINA 78471 PAIN IN 03-03-2008 [facility] [place] JOINT, RADIOLOGY ANKLE AND FOOT 26814 UNSPECIFIED 03-03-2008 [facility] SITE OF N EMERGENCY ANKLE PHYS INC SPRAIN AND STRAIN E8490 PLACE OF 03-03-2008 [facility] E927 OVEREXERTIO 03-03-2008 [facility] N&STRENUOUS N EMERGENCY &REPETITIVE PHYS INC MVMNTS/LOAD S 7242 LUMBAGO 02-25-2008 [facility] N EMERGENCY PHYS INC V642 SURG/OTH 12-21-2007 [facility] PROC NOT COMMUNITY CARRIED OUT HOSPITAL BECAUSE PTS DECN 79026 UNSPECIFIED 12-09-2007 [facility] VIRAL N EMERGENCY INFECTION PHYS INC IN CCE & UNS SITE Medications Na ND Rx Da Fi Fi [...] PH AR MA CY #0 54 37 HI 65 09 10 15 5 00 KE [...] ve LO 16 20 20 91 [place] HI 90 17 17 36 AM 1 97 CV S 10 PH AR MG MA CY TA BL LL ET C, DB A CV S PH AR MA CY #0 54 37 HI 65 09 10 15 5 00 KE [...] PH AR MA CY #0 54 37 HI 65 08 09 15 5 00 KE [...] #0 54 37 VE 00 08 09 30 30 00 [...] -2 .0 00 L- ti -C 11 07 MA ve LA 85 20 20 50 RT V 22 17 17 71 87 0 58 PH 5- AR 12 MA 5 CY MG #5 TA 91 BL ET DI 16 08 09 60 30 00 KE Ac CL 57 -2 -2 .0 00 NT ti OF 10 1- 2- 00 UC ve EN 20 20 20 [...] #0 MG 23 32 TA BL ET SI 65 07 09 30 [...] MG 32 TA BL ET VE 00 08 09 30 30 00 CV Ac NL 09 -1 -0 .0 00 S ti AF 37 0- 1- 00 01 PH ve AX 38 20 20 38 AR IN 59 17 17 07 MA E 8 07 CY HC L #0 ER 23 32 75 MG CA P ES 16 08 09 30 30 00 CV Ac CI 72 -1 -0 .0 00 S ti TA 90 2- 1- 00 01 PH ve LO 16 20 20 35 AR HI 90 17 17 98 MA AM 1 [...] MG #0 23 TA 32 BL ET HI 00 08 09 19 10 00 CV Ac ED 14 -1 -0 .0 00 S ti NI 39 0- 1- 00 01 PH ve SO 73 20 20 38 AR NE 91 17 17 07 MA 0 06 CY 10 #0 MG 23 32 TA BL ET VE 00 07 [...] ve LO 16 20 20 35 AR HI 90 17 17 98 MA AM 1 26 CY 10 #0 23 MG 32 TA BL ET ES 16 06 07 30 30 00 CV Ac CI 72 -1 -2 .0 00 S ti TA 90 9- 1- 00 01 PH ve LO 16 20 20 35 AR HI 90 17 17 98 MA AM 1 [...] MC 32 G IN OROZCO LE R HI 00 06 07 10 5 00 WA [...] ve LO 16 20 20 29 AR HI 90 17 17 49 MA AM 1 00 CY 10 #0 23 MG 32 TA BL ET NA 65 05 06 20 10 00 WA Ac HI 16 -1 -0 .0 00 L- ti OX 20 5- 9- 00 07 MA ve EN 19 20 20 48 RT 01 17 17 79 50 1 63 PH 0 AR MG MA CY TA BL #5 ET 91 CY 68 05 06 12 4 00 WA Ac CL 64 -1 -0 .0 00 L- ti OB 50 5- 9- 00 07 MA ve EN 51 20 20 48 RT ZA 89 17 17 79 HI 0 62 PH IN AR E MA 10 CY MG #5 91 TA BL ET BU 00 05 06 90 30 00 CV Ac SP 37 -1 -0 .0 00 S ti IR 81 1- 2- 00 01 PH ve ON 15 20 20 34 AR E 00 17 17 36 MA HC 1 59 CY L 10 #0 23 MG 32 TA BL ET VE 00 05 06 18 27 00 CV Ac NT 17 -1 -0 .0 00 S ti OL 30 3- 2- 00 01 PH ve IN 68 20 20 26 AR 22 17 17 63 MA HF 0 71 CY A 90 #0 23 MC 32 G IN OROZCO LE R TR 50 04 05 45 30 00 CV Ac AZ 11 -2 -1 .0 00 S ti OD 10 6- 9- 00 01 PH ve ON 43 20 20 30 AR E 30 17 17 85 MA 50 1 50 CY MG #0 23 TA 32 BL ET ES 16 04 05 30 30 00 CV Ac CI 72 -2 -1 .0 00 S ti TA 90 6- 9- 00 01 PH ve LO 16 20 20 29 AR HI 90 17 17 49 MA AM 1 00 CY 10 #0 23 MG 32 TA BL ET BU 00 04 05 90 30 00 CV Ac SP 37 -1 -0 .0 00 S ti IR 81 2- 5- 00 01 PH ve ON 15 20 20 29 AR E 00 17 17 98 MA HC 1 37 CY L 10 #0 23 MG 32 TA BL ET TR 50 03 04 45 30 00 CV Ac AZ 11 -3 -2 .0 00 S ti OD 10 0- 1- 00 01 PH ve ON 43 20 20 30 AR E 30 17 17 85 MA 50 1 50 CY MG #0 23 TA 32 BL ET ES 16 03 04 30 30 00 CV Ac CI 72 -3 -2 .0 00 S ti TA 90 0- 1- 00 01 PH ve LO 16 20 20 29 AR HI 90 17 17 49 MA AM 1 [...] 32 G IN OROZCO LE R BU 10 03 03 30 30 00 CV Ac HI 37 -0 -3 .0 00 S ti OP 00 7- 1- 00 01 PH ve IO 10 20 20 25 AR N 25 17 17 35 MA HC 0 31 CY L XL #0 23 30 32 0 MG TA BL ET BU 00 03 03 90 [...] 23 TA 32 BL ET ES 16 02 03 30 30 00 CV Ac CI 72 -2 -1 .0 00 S ti TA 90 4- 7- 00 01 PH ve LO 16 20 20 29 AR HI 90 17 17 49 MA AM 1 00 CY 10 #0 23 MG 32 TA BL ET BU 10 02 03 30 30 00 CV Ac HI 37 -0 -1 .0 00 S ti OP 00 7- 0- 00 01 PH ve IO 10 20 20 25 AR N 25 17 17 35 MA HC 0 31 CY L XL #0 23 30 32 0 MG TA BL ET BU 00 02 03 90 30 00 CV Ac SP 37 -0 -1 .0 00 S ti IR 81 8- 0- 00 01 PH ve ON 15 20 20 29 AR E 00 17 17 98 MA HC 1 37 CY L 10 #0 23 MG 32 TA BL ET VE 00 02 02 18 27 00 CV Ac NT 17 -0 -2 .0 00 S ti OL 30 2- 4- 00 01 PH ve IN 68 20 20 26 AR 22 17 17 63 MA HF 0 71 CY A 90 #0 23 MC 32 G IN OROZCO LE R TR 50 01 02 45 30 00 [...] ve LO 16 20 20 29 AR HI 90 17 17 49 MA AM 1 00 CY 10 #0 23 MG 32 TA BL ET AC 00 01 02 20 4 00 WA Ac ET 09 -2 -1 .0 00 L- ti AM 30 8- 7- 00 04 MA ve IN 15 20 20 52 RT OP 01 17 17 91 HE 0 83 PH N- AR CO MA D CY #3 #5 TA 91 BL ET CE 68 01 02 40 10 00 WA Ac PH 18 -2 -1 .0 00 L- ti AL 00 8- 7- 00 07 MA ve EX 12 20 20 46 RT IN 20 17 17 74 2 56 PH 50 AR 0 MA MG CY CA #5 PS 91 UL E BU 00 01 02 90 30 00 CV Ac SP 37 -1 -1 .0 00 S ti IR 81 0- 0- 00 01 PH ve ON 15 20 20 25 AR E 00 17 17 35 MA HC 1 30 CY L 10 #0 23 MG 32 TA BL ET NA 65 01 02 30 15 00 CV Ac HI 16 -2 -1 .0 00 S ti OX 20 2- 0- 00 01 PH ve EN 19 20 20 29 AR 05 17 17 21 MA 50 0 29 CY 0 MG #0 23 TA 32 BL ET PETERS 55 01 02 9. 30 00 CV Ac MA 11 -1 -1 00 00 S ti TR 10 2- 0- 0 01 PH ve IP 29 20 20 26 AR TA 23 17 17 08 MA N 6 34 CY PETERS CC #0 23 50 32 MG TA BL ET BU 10 01 02 30 30 00 CV Ac HI 37 -1 -1 .0 00 S ti OP 00 0- 0- 00 01 PH ve IO 10 20 20 25 AR N 25 17 17 35 MA HC 0 31 CY L XL #0 23 30 32 0 MG TA BL ET TR 50 12 01 [...] ve LO 16 20 20 18 AR HI 90 16 17 04 MA AM 1 [...] 08 08 MA TA 0 CY D ME F N- 23 CA 32 FF 50 [...] 00 60 30 CV 14 AT Ac HI 37 -1 -2 .0 S 93 CH [...] 08 08 MA TA 0 CY D ME F N- 23 CA 32 FF 50 [...] 00 30 30 CV 14 AT Ac HI 37 -1 -0 .0 S 14 CH [...] MG 23 D 32 TA BL ET 53 06 07 01 90 23 CV 13 DA Ac 74 -1 -1 .0 S 22 BN ti 60 4- 7- 00 PH 01 EY ve 13 20 20 AR 70 08 08 MA GI 5 CY NA 23 32 CL 00 06 07 01 90 30 CV 13 AT Ac ON 09 -1 -1 .0 S 10 CH ti AZ 30 0- 7- 00 PH 98 ER ve EP 83 20 20 AR AM 40 08 [address] 2 1 CY IG HT MG 23 D 32 TA BL ET HI 00 07 07 00 12 3 CV 13 CH Ac OM 78 -0 -1 .0 S 95 AN ti ET 11 9- 7- 00 PH 00 DL ve OROZCO 83 20 20 AR ER ZI 00 08 08 MA NE 1 CY KR IS 25 23 TY 32 MG TA BL ET 45 06 [...] la 3 CY bl e 23 32 CL 00 06 07 00 90 30 [...] 32 TA BL ET TR 00 06 07 01 60 4 CV 12 DI Ac AM 09 -0 -0 .0 S 92 ET ti AD 30 4- 3- 00 PH 55 Z ve OL 05 20 20 AR DA 80 08 08 MA NI HC 5 CY EL L LE 50 23 32 MG TA BL ET AM 00 06 07 00 42 14 CV 13 WA Ac OX 09 -1 -0 .0 S 11 GN ti IC 33 0- 3- 00 PH 73 ER ve IL 10 20 20 AR LI 70 08 08 MA PH N 5 CY IL 25 LI 0 23 P MG 32 L CA PS UL E 00 06 07 00 10 2 CV 13 WA Ac 40 -1 -0 .0 S 11 GN ti 60 0- 3- 00 PH 76 ER ve 35 20 20 AR 70 08 08 MA PH 5 CY IL LI 23 P 32 L TR 00 06 06 00 60 4 [...] BE 5 CY RT C 23 32 CL 00 05 06 00 63 21 [...] MG 23 D 32 TA BL ET NA 00 05 06 00 10 5 CV 12 No Ac HI 09 -3 -0 .0 S 81 t ti OX 30 0- 5- 00 PH 76 Av ve EN 14 20 20 AR ai 90 08 08 MA la 50 5 CY bl 0 e MG 23 32 TA BL ET CY 00 05 05 00 12 4 CV 11 No Ac CL 37 -0 -2 .0 S 98 t ti OB 80 3- 2- 00 PH 09 Av ve EN 75 20 20 AR ai ZA 11 08 08 MA la HI 0 CY bl IN e E 23 10 32 MG TA BL ET NA 00 05 05 00 12 6 CV 11 No Ac HI 09 -0 -2 .0 S 98 t ti OX 30 3- 2- 00 PH 10 Av ve EN 53 20 20 AR ai 70 08 08 MA la SO 1 CY bl DI e UM 23 32 55 0 MG TA B TR 00 05 05 00 24 3 CV 12 No Ac AM 09 -1 -2 .0 S 20 t ti AD 30 0- 2- 00 PH 60 Av ve OL 05 20 20 AR ai 80 08 08 MA la HC 5 CY bl L e 50 23 32 MG TA BL ET CI 57 03 05 02 30 30 CV 10 ED Ac TA 66 -2 -2 .0 S 64 WA ti LO 40 0- 2- [address] ve HI 50 20 20 AR S AM 91 [...] 0- 4- 00 PH 53 Av ve HI 50 20 20 AR ai AM 91 08 08 MA la 3 CY bl HB e R 23 40 32 MG TA BL ET CI 57 03 04 00 30 30 CV 10 No Ac TA 66 -2 -1 .0 S 64 t ti LO 40 0- 7- 00 PH 53 Av ve HI 50 20 20 AR ai AM 91 [...] Procedure DOS Code Location Performer Comment RADIOLOGI 85725 [place] DANNIEL[facility] C EXAM 7 MEDICAL CHEST 2 IMAGING VIEWS ASS FRONTAL&[place] [address] [place] [facility] CERVICAL 7 MEDICAL SPINE W/O IMAGING CONTRAST ASS MATERIAL RADEX 17581 [place] RUDY SHOULDER 7 MEDICAL COMPLETE IMAGING MINIMUM 2 ASS VIEWS THERAPEUT 79108 [facility] IC 7 MEM HOSP [facility]OS[facility] PROPHYLAC INC INC TIC/DX INJECTION SUBQ/IM RADEX 19894 [facility] [place] RADMANESH SHOULDER 7 RADIOLOGY COMPLETE MINIMUM 2 VIEWS RADEX 19400 [facility] KAY SHOULDER 6 MEM HOSP MEM HOSP COMPLETE INC INC MINIMUM 2 VIEWS RADEX 62770 [facility] KAY CLAVICLE 6 MEM HOSP MEM HOSP COMPLETE INC INC RADEX 55358 [facility] SARKARON SPINE 6 MEM HOSP MEM HOSP LUMBOSACR INC INC AL MINIMUM 4 VIEWS RADEX 86403 [facility] [place] RADMANESH SHOULDER 6 RADIOLOGY SHA COMPLETE MINIMUM 2 VIEWS MRI ANY 35711 [place] DANNI[facility] ALL JT LOWER 6 MEDICAL EXTREM IMAGING W/O ASS CONTRAST MATRL RADIOLOGI 99477 [facility] COLLAZO SEA C 6 N EXAMINATI RADIOLOGY ON KNEE 3 GROUP P VIEWS COMPUTER- 17535 [facility] AIDED 6 N N DETECTION COMMUNTIY COMMUNTIY DX HOSPITA HOSPITA MAMMOGRAP HY US BREAST 69720 [facility] UNI REAL 6 N N TIME COMMUNTIY COMMUNTIY WITH HOSPITA HOSPITA IMAGE COMPLETE DIAGNOSTI G0204 [facility] C 6 N N MAMMOGRAP COMMUNTIY COMMUNTIY HY INCL HOSPITA HOSPITA CAD WHEN PERF; BILAT RADEX 17285 [facility] IRASEMA MANDEEP SPINE 6 N LUMBOSACR RADIOLOGY AL 2/3 GROUP P VIEWS INJECTION J1885 [facility] 6 N N KETOROLAC COMMUNTIY COMMUNTIY HOSPITA HOSPITA TROMETHAM INE PER 15 MG INFUSION J7030 [facility] NORMAL 6 N N SALINE COMMUNTIY COMMUNTIY SOLUTION HOSPITA HOSPITA 1000 CC RADEX 04130 [facility] SHOULDER 6 REGIONAL REGIONAL COMPLETE MEDICAL MEDICAL MINIMUM 2 VIEWS RADEX 28480 [facility] SCAPULA 6 REGIONAL REGIONAL COMPLETE MEDICAL MEDICAL RADIOLOGI 86744 RADIOLOGY IRASEMA KAUFMAN C 5 EXAMINATI ASSOCIATE ON CHEST S OF OZZIE SINGLE VIEW FRONTAL RADIOLOGI 13226 [facility] [place] JOSSELIN C EXAM 5 RADIOLOGY RHO CHEST 2 VIEWS FRONTAL&L ATERAL RADEX HIP 64581 [facility] 5 MYAH CELY UNILATERA EMERGENCY L PHYS COMPLETE MINIMUM 2 VIEWS MRI ANY 48446 [facility] JT LOWER 5 N N EXTREM COMMUNTIY COMMUNTIY W/O HOSPITA HOSPITA CONTRAST MATRL RADIOLOGI 90017 [facility] [place] ORTIZ C EXAM 4 RADIOLOGY CARRIE KNEE COMPLETE 4/MORE VIEWS RADEX 75458 [facility] [place] MAGDA SHOULDER 4 RADIOLOGY TONYA COMPLETE MINIMUM 2 VIEWS RADEX 37152 [facility] [place] ARIADNA MAT SPINE 4 RADIOLOGY CERVICAL [address] [place] [address] [facility] [place] BREWER ABDOMEN & 4 RADIOLOGY RAY PELVIS W/O CONTRAST MATERIAL RADEX [address] COMPLETE MINIMUM 2 VIEWS RADEX 45603 [facility] [place] JOSEPH, SPINE 8 RADIOLOGY [place]AC[place] [address] [place] [address] [facility] [place] KAYDEN, MAXILLOFA 8 RADIOLOGY KATARZYNA D CIAL W/O CONTRAST MATERIAL RADEX 43150 [facility] [place] JOSEPH, SHOULDER 8 RADIOLOGY J COMPLETE MINIMUM 2 VIEWS RADEX 39863 [facility] [place] JOSEPH, SPINE 8 RADIOLOGY J CERVICAL 2 OR 3 VIEWS COLONOSCO 67017 AGUILAR- JEFF- PY FLX DX 8 DENNY, DENNY, W/COLLArden MARSHALL SPEC WHEN PFRMD ANES 58774 [place] DEPA, LOWER 8 ANESTHESI XIMENA INTESTINE A GROUP PSC ENDOSCOPY DISTAL DUODENUM UNLISTED 76460 [facility] ANESTHESI 8 N N A [facility] URNLS DIP 94959 HORIZON TERRANCE, HEALTHCAR THADDEUS STICK/TAB E CENTER LET RGNT AUTO W/O MICROSCOP Y CUL BACT 18638 [facility] XCPT 8 N N URINE [facility] B[facility] [place] [address] [facility] STREPTOCO [address] [facility] PELVIS 384[address] [facility] [place] KOSTELIC, W/O 8 [place] [address] [facility] [place] KOSTELIC, ABDOMEN 8 RADIOLOGY FERDINAND K W/O CONTRAST MATERIAL RADEX 10753 [facility] ANKLE 8 N N COMPLETE [address] H[facility] VIEWS RADIOLOGI 286[address] [facility] Fanta BROWN 8 RADIOLOGY N EXAMINATI ON ANKLE 2 VIEWS Encounters Encounter Start End Date Code Location Performer Type Date EMERGENCY 08737 SARAH RASMUSSEN, 7 7 PHYSICIAN JR WATSON S, PLLC T VISIT HIGH/[facility] Peters 7 [facility] OUTPATIEN INC T OFFICE 97782 [facility] 7 [facility] T NEW 20 INC MINUTES EMERGENCY 07449 [facility] 7 7 [facility] LOW/MODER SEVERITY EMERGENCY 91649 SARAH RASMUSSEN, 7 7 PHYSICIAN [facility] MODERATE SEVERITY H[facility] RA[facility] - 7 7 [facility] OUTPATIEN INC T HOSPITAL [facility] - 7 7 N OUTPATIEN COMMUNTIY T HOSPITA EMERGENCY 11475 [facility] 7 7 [facility] EMERGENCY T VISIT PHYS MODERATE SEVERITY EMERGENCY 33047 RA[facility] 6 6 [facility] T VISIT LIMITED/M INOR PROB HOSPITAL RAHUL - 6 6 [facility] OUTPATIEN INC T EMERGENCY 98116 SARAH BELLO 6 6 PHYSICIAN Karen GAN [facility] S, PLL[facility] T VISIT HIGH/URGE NT SEVERITY EMERGENCY 54901 SARAH DEAN 6 6 PHYSICIAN RASHIDA WATSON S PLLC T VISIT MODERATE SEVERITY EMERGENCY 55850 [facility] 6 6 [facility] T VISIT LIMITED/M INOR PROB EMERGENCY 18423 SARAH BELLO 6 6 PHYSICIAN Karen WTASON S PLL[facility] T VISIT MODERATE SEVERITY HOSPITAL [facility] - 6 6 [facility] OUTPATIEN INC T EMERGENCY 31803 [facility] 6 6 [facility] EMERGENC[facility] T VISIT PHYS MODERATE SEVERITY HOSPITAL RA[facility]UL - 6 6 [facility] OUTPATIEN INC T EMERGENCY 64160 SARAH DEAN 6 6 [facility] VISIT MODERATE SEVERITY EMERGENCY 54021 RA[facility] 6 6 MEM HOSP DEPARTMEN INC T VISIT LOW/MODER SEVERITY EMERGENCY 92320 SANDER-I TANNER RAC 6 6 MEDICAL DEPARTMEN SERVICES T VISIT MODERATE SEVERITY HOSPITAL [facility] - 6 6 N OUTPATIEN COMMUNTIY T HOSPITA EMERGENCY 45716 LIZ HOOD DEPT 6 6 JR MARCIA CROWLEY VISIT HIGH EMERGENCY SEVERITY& THREAT FUNCJ HOSPITAL [facility] - 6 6 N OUTPATIEN COMMUNTIY T HOSPITA EMERGENCY 23204 [facility] KE YAN 6 6 MYAH DEPARTMEN EMERGENCY T VISIT PHYS HIGH/URGE NT SEVERITY EMERGENCY 31151 [facility] 6 6 N DEPARTMEN COMMUNTIY T VISIT HOSPITA MODERATE SEVERITY EMERGENCY 63393 [facility] 6 6 N DEPARTMEN COMMUNTIY T VISIT HOSPITA LOW/MODER SEVERITY EMERGENCY 17438 [facility] CELLAROSI 6 6 MYAH - YORBA DEPARTMEN EMERGENCY PAT T VISIT PHYS MODERATE SEVERITY HOSPITAL [facility] - 6 6 N OUTPATIEN COMMUNTIY T HOSPITA EMERGENCY 82301 [facility] 6 6 [facility]IONAL DEPARTMEN MEDICAL T VISIT MODERATE SEVERITY [facility] - 6 6 REGIONAL OUTPATIEN MEDICAL T EMERGENCY 63673 LIZ MACIAS MAR DEPT 5 5 [facility] VISIT HIGH EMERGENCY SEVERITY& THREAT FUNCJ EMERGENCY 62221 LIZ ALBERTOY TYL 5 5 [facility] DEPARTMEN T VISIT EMERGENCY HIGH/URGE NT SEVERITY EMERGENCY 63673 [facility] YAN 5 5 [facility] DEPARTMEN EMERGENCY T VISIT PHYS MODERATE SEVERITY EMERGENCY 54147 [facility] SANTOS 5 5 MYAH CELY DEPARTMEN EMERGENCY T VISIT PHYS MODERATE SEVERITY EMERGENCY [id number] [facility] FRANS[place] JAM 5 5 MYAH DEPARTMEN EMERGENCY T VISIT PHYS MODERATE SEVERITY HOSPITAL [facility] - 5 5 N OUTPATIEN COMMUNTIY T HOSPITA EMERGENCY 78880 [facility] TRISTON 5 5 MYAH SANDRO DEPARTMEN EMERGENCY T VISIT PHYS MODERATE SEVERITY EMERGENCY 67069 [facility] TRISTON 4 4 MYAH SANDRO DEPARTMEN EMERGENCY T VISIT PHYS MODERATE SEVERITY EMERGENCY [address] [facility] DEPT 4 4 MYAH SCO VISIT EMERGENCY HIGH PHYSI SEVERITY& THREAT FUNCJ [facility]ERGENCY 64054 [facility] 4 MYAH DEPARTMEN EMERGENCY T VISIT PHYSI HIGH/URGE NT SEVERITY EMERGENCY 39065 [facility] CELLAROSI 4 4 MYAH - YORBA DEPARTMEN EMERGENCY PAT T VISIT PHYSI MODERATE SEVERITY EMERGENCY 89240 [facility] SANTOS 4 4 MYAH CEYL DEPARTMEN EMERGENCY T VISIT PHYSI HIGH/URGE NT SEVERITY EMERGENCY 58168 [facility] 4 4 MYAH RYA DEPARTMEN EMERGENCY T VISIT PHYS HIGH/URGE NT SEVERITY EMERGENCY [address] [facility] 4 4 MYAH SCO DEPARTMEN EMERGENCY T VISIT PHYSI HIGH/URGE NT SEVERITY EMERGENCY [address] [facility] 4 4 MYAH SCO DEPARTMEN EMERGENCY T VISIT PHYSI MODERATE SEVERITY EMERGENCY 79395 [facility] DEPT 4 4 MYAH VISIT EMERGENCY HIGH PHYSI SEVERITY& THREAT FUNCJ EMERGENCY 53915 [facility] 4 4 HOSPITAL DEPARTMEN T VISIT MODERATE SEVERITY HOSPITAL [facility] - 4 4 HOSPITAL OUTPATIEN T EMERGENCY 96424 [facility], 8 8 MYAH LIANET DEPARTMEN EMERGENCY T VISIT PHYS INC HIGH/URGE NT SEVERITY EMERGENCY 79137 [facility], 8 8 MYAH JANI Gomez DEPARTMEN EMERGENCY T VISIT PHYS INC MODERATE SEVERITY HOSPITAL [facility] - 8 8 N OUTPATIEN COMMUNITY T HOSPITAL EMERGENCY 74010 [facility], 8 8 MYAH EID DEPARTMEN EMERGENCY A T VISIT PHYS INC MODERATE SEVERITY OFFICE 50699 [facility] 8 8 PATRICIA Jewell T VISIT 15 MINUTES OFFICE 83491 [facility]ATT[facility] CARLOS [facility] 8 8 ADIS TRAVIS T VISIT E CENTER 15 MINUTES OFFICE 46636 [facility] PATRICIA Jewell T VISIT 15 MINUTES HOSPITAL [facility] - 8 8 N [facility] 80619 [facility], 8 8 MYAH ANDREW Magallon [facility] EMERGENCY T VISIT PHYS INC MODERATE SEVERITY EMERGENCY 25342 [facility] 8 8 N [facility] LOW/MODER SEVERITY OFFICE 46756 [facility] 8 8 PATRICIA Jewell T VISIT 25 MINUTES EMERGENCY 41391 [facility] 8 8 MYAH Taime [place], [facility] EMERGENCY LAKESHA T VISIT PHYS INC M HIGH/URGE NT SEVERITY EMERGENCY 38424 [facility] MYAH EID VISIT EMERGENCY A HIGH PHYS INC SEVERITY& THREAT [facility] - 8 8 N [facility] EMERGENCY 44259 [facility] 8 8 N [facility] MODERATE SEVERITY EMERGENCY 39174 [facility], 8 8 MYAH STANTON [facility] EMERGENCY A T VISIT PHYS INC MODERATE SEVERITY EMERGENCY 64922 [facility], 8 8 MYAH [place] [facility] EMERGENCY A T VISIT PHYS INC MODERATE SEVERITY EMERGENCY 61035 [facility], 8 8 MYAH [place] [facility] EMERGENCY A T VISIT PHYS INC MODERATE SEVERITY EMERGENCY 75349 [facility] 8 8 N [facility] LIMITED/M INOR [facility] 8 8 N [facility] EMERGENCY 12863 [facility], 8 8 MYAH Magallon [facility] EMERGENCY T VISIT PHYS INC MODERATE SEVERITY
--- OUTSIDE RECORDS SUMMARY | 2017-08-16 10:35 | External Medical Summary Rpt | CCD ---
Author Author , KAVIN VALE Address Unknown Phone [email or web address] Care Team Providers Care Investment Accountant Name Role Phone MAGDA TONYA, MAGDA Unavailable Unavailable TONYA STANTON LIN, Unavailable Unavailable STANTON LIN J, Unavailable Unavailable Arden RUIZ, FRANSICO KENNEDY Unavailable Unavailable SPICER, SPICER Unavailable Unavailable SPICER ALL, SPICER ALL Unavailable Unavailable CELLAROSI - YORBA Unavailable Unavailable PAT, CELLAROSI - YORBA PAT CELLAROSI - YORBA, Unavailable Unavailable LAKESHA Dunn, CELLAROSI - YORBWanda, LIANET PERALTA CLARK, Unavailable Unavailable LIANET [facility], Unavailable Unavailable [facility] LEANDER CARTER, LEANDER CARTER Unavailable Unavailable RUDY GRANT Unavailable Unavailable [facility] 2332, Unavailable Unavailable [facility] 2332 THADDEUS CARLOS DABNEY, Unavailable Unavailable XIMENA LUGO DEPA, Unavailable Unavailable TOM EWING Unavailable Unavailable CELY [facility] Unavailable Unavailable GROUP P, [facility] Unavailable Unavailable MEDICAL, [facility] JR RASMUSSEN FULLER, Unavailable Unavailable [facility] Unavailable Unavailable HOSPITAL, [facility] Unavailable Unavailable HOSPITA, [facility] JOSSELIN RHO, JOSSELIN Unavailable Unavailable RHO KATARZYNA MONIQUE, Unavailable Unavailable KATARZYNA MONIQUE HARPER Unavailable Unavailable CARRIE [facility], Unavailable Unavailable [facility] Unavailable Unavailable [facility], [facility] JR MARCIA HOOD, Unavailable Unavailable JR MARCIA HOOD, Unavailable Unavailable CAMPBELL MARSHALL KAREN [facility] Unavailable Unavailable EMERGENCY, [facility] Unavailable Unavailable IMAGING ASS, [facility] FERDINAND PEREIRA, Unavailable Unavailable [...] MAR Unavailable Unavailable SOTINGEANU MALIK, Unavailable Unavailable [facility] Unavailable Unavailable EMERGENCY PHYS, [facility] Unavailable Unavailable EMERGENCY PHYSI, [facility]SI [facility], Unavailable Unavailable [facility] CANDACE BRADLEY, CANDACE Unavailable Unavailable RYA BREWER RAY, BREWER Unavailable Unavailable PATRICIA MULTANI, Unavailable Unavailable PATRICIA ROSEN PHILLIP L, Unavailable Unavailable ANDREW DAVID TRISTON SANDRO, TRISTON Unavailable Unavailable SANDRO ARIADNA MAT, ARIADNA MAT Unavailable Unavailable Purpose Continuity of Care Document - 12-09-2007 through 2016 Problems Code Diagnosis DOS Provider Status [id number] PAIN IN 06-13-2017 SARAH LEFT PHYSICIANS, SHOULDER PLLC [id number] SPONDYLOSIS 06-13-2017 [facility] W/O MEDICAL MYELOPATH/R IMAGING ASS ADICULOPATH Y CERV RGN M542 CERVICALGIA 06-13-2017 [facility]AH PHYSICIANS, PLLC R079 CHEST PAIN 06-13-2017 [place] UNSPECIFIED MEDICAL IMAGING ASS U33197 MIGRAINE 11-27-2016 [facility] INTRACT W/O INC STATUS MIGRAINOSUS Z720 TOBACCO USE 11-27-2016 [facility] INC L739 FOLLICULAR 11-21-2016 SARAH DISORDER PHYSICIANS, UNSPECIFIED PLLC C21123 PAIN IN 10-07-2016 [place] RIGHT MEDICAL SHOULDER IMAGING ASS [id number] CONTUSION 10-07-2016 SARAH RT FRONT PHYSICIANS, WALL THORAX PLLC INITIAL ENCOUNTER W31345E CONTUSION 10-07-2016 SARAH OF RIGHT PHYSICIANS, SHOULDER PLLC INITIAL ENCOUNTER V4929AL UNS INJURY 10-07-2016 [place] RT SHOULDER MEDICAL UPPER ARM IMAGING ASS INITIAL ENCNTR Q22156N BURN 2ND 08-20-2016 SARAH DEGREE LT PHYSICIANS, LOWER LEG PLLC INITIAL ENCOUNTER M545 LOW BACK 07-09-2016 [facility] PAIN MEDICAL IMAGING ASS N299WGY SPRAIN 07-09-2016 [facility] LUMBAR INC SPINE INITIAL ENCOUNTER I65090R STRAIN 07-09-2016 SARAH MUSCLE PHYSICIANS, FASCIA & PLLC TENDON LOW BACK INITIAL F2665BG UNSPECIFIED 07-09-2016 [place] INJURY MEDICAL LOWER BACK IMAGING ASS INITIAL ENCOUNTER [id number] UNSPECIFIED 05-30-2016 [facility] SPRAIN LT N EMERGENCY SHOULDER PHYS JOINT INITIAL ENC Y93F2 ACTIVITY 05-30-2016 [facility] CAREGIVING N EMERGENCY LIFTING PHYS N10058 PAIN IN 05-27-2016 [place] RIGHT KNEE MEDICAL IMAGING ASS N326N4B SPRAIN 05-15-2016 SARAH OTHER SPEC PHYSICIANS, PARTS RIGHT PLLC KNEE INITIAL ENC M2391 UNSPECIFIED 04-09-2016 [facility] DERANGEMENT GROUP P OF RIGHT KNEE N63 UNSPECIFIED 03-04-2016 [facility] LUMP IN COMMUNTIY BREAST HOSPITA N6489 OTHER 03-04-2016 [facility] [place] SPECIFIED RADIOLOGY DISORDERS OF BREAST R928 OTH ABNORM 03-04-2016 [facility] & COMMUNTIY INCONCLUSIV HOSPITA E FIND ON DX IMAG BREAST Z043 ENCOUNTER 02-06-2016 [facility] EXAM & RADIOLOGY OBSERVATION GROUP P FOLLOW OTH ACCIDENT G32535 CHRONIC 01-21-2016 [facility] MIGRAINE N EMERGENCY W/O AURA PHYS NOT INTRACT W/O SM R590 LOCALIZED 12-23-2015 [facility] ENLARGED COMMUNTIY LYMPH NODES HOSPITA R591 GENERALIZED 12-23-2015 [facility] ENLARGED N EMERGENCY LYMPH NODES PHYS K20809M CONTUSION 11-17-2015 [place] OF LEFT REGIONAL SHOULDER MEDICAL INITIAL ENCOUNTER R0789 OTHER CHEST 08-03-2015 [facility] PAIN [facility] EMERGENCY 7265 ENTHESOPATH 06-01-2015 [facility] Y OF HIP [facility] EMERGENCY 48974 OBSTRUCTIVE 05-13-2015 [facility] CHRONIC N EMERGENCY BRONCHITIS PHYS WITH EXACERBATIO N 7862 COUGH 05-13-2015 [facility] [place] [facility] 66968 PAIN IN 05-04-2015 [facility] JOINT N EMERGENCY PELVIC PHYS REGION AND THIGH 15425 NONTRAUMATI 05-04-2015 [facility] C HEMATOMA N EMERGENCY OF SOFT PHYS TISSUE 0539 HERPES 03-21-2015 [facility] ZOSTER N EMERGENCY WITHOUT PHYS MENTION OF COMPLICATIO N 7177 CHONDROMALA 12-04-2014 [facility] [place] MANA OF RADIOLOGY PATELLA 31017 PAIN IN 12-04-2014 [facility] JOINT, COMMUNTIY LOWER LEG HOSPITA 52930 PAIN IN 10-30-2014 [facility] JOINT, N EMERGENCY SHOULDER PHYS REGION 8449 SPRAIN&STRA 10-09-2014 [facility] IN OF N EMERGENCY UNSPECIFIED PHYS SITE OF KNEE&LEG E9288 OTHER 10-09-2014 [facility] ACCIDENT N EMERGENCY PHYS 63842 VOMITING 07-21-2014 [facility] ALONE N EMERGENCY PHYSI 9114 TRNK INSECT 07-05-2014 [facility] BITE N EMERGENCY NONVENOMOUS PHYSI WITHOUT MENTION INF 9124 SHLDR&UP 07-05-2014 [facility]SE[facility] EMERGENCY BITE PHYSI NONVENOMOUS W/O INF E9064 BITE OF 07-05-2014 [facility] NONVENOMOUS N EMERGENCY ARTHROPOD PHYSI 35382 MIGRAINE 06-16-2014 [facility] UNSP W/O N EMERGENCY INTRACT W/O PHYSI STATUS MIGRAINOSUS 4658 ACUTE URIS 06-14-2014 [facility] OF OTHER N EMERGENCY MULTIPLE PHYS SITES 68088 NAUSEA WITH 06-14-2014 [facility] VOMITING N EMERGENCY PHYS 92360 DIARRHEA 04-21-2014 [facility] EMERGENCY PHYSI 91071 ABDOMINAL 04-21-2014 [facility] PAIN, N EMERGENCY UNSPECIFIED PHYSI SITE 7231 CERVICALGIA 02-18-2014 [facility] RADIOLOGY 41467 DEHYDRATION 01-21-2014 [facility] N EMERGENCY PHYSI 60732 UNSPEC 12-09-2013 [facility] BURSAE&TEND ONS SHOULDER REGION 60636 CONTUSION 12-09-2013 [facility] REGION 7241 PAIN IN 05-30-2008 [facility] THORACIC RADIOLOGY SPINE 7840 HEADACHE 05-30-2008 [facility] RADIOLOGY 8409 SPRAIN&STRA 05-30-2008 [facility] IN UNSPEC N EMERGENCY SITE PHYS INC SHOULDER&UP PER ARM 8470 NECK SPRAIN 05-30-2008 [facility] AND STRAIN N EMERGENCY PHYS INC 8471 THORACIC 05-30-2008 [facility] SPRAIN AND N EMERGENCY STRAIN PHYS INC 23033 INJURY OF 05-30-2008 [facility] FACE AND RADIOLOGY NECK OTHER AND UNSPECIFIED E8809 ACCIDENTAL 05-30-2008 [facility] FALL ON OR N EMERGENCY FROM OTHER PHYS INC STAIRS OR STEPS 4550 INTERNAL 05-10-2008 [facility] HEMORRHOIDS COMMUNITY WITHOUT HOSPITAL MENTION COMP 5693 HEMORRHAGE 05-10-2008 [facility] OF RECTUM NKLIN, AND ANUS ROLANDO 62623 ABDOMINAL 05-10-2008 [facility] PAIN OTHER COMMUNITY SPECIFIED HOSPITAL SITE 61845 ABDOMINAL 04-18-2008 SIL[facility], PAIN RIGHT PATRICIA C LOWER QUADRANT 67738 ABDOMINAL 04-18-2008 SILAS, PAIN, LEFT PATRICIA C LOWER QUADRANT 5990 URINARY 04-07-2008 [facility] SITE NOT SPECIFIED 4739 UNSPECIFIED 04-03-2008 [facility] SINUSITIS N EMERGENCY PHYS INC 2768 HYPOPOTASSE 03-23-2008 [facility] DEEPALI N EMERGENCY PHYS INC 87736 CALCU 03-23-2008 [facility] GALLBLADD N EMERGENCY W/O MENTION PHYS INC CHOLECYST/O BST 6238 OTHER 03-23-2008 [facility] SPECIFIED N EMERGENCY NONINFLAMMA PHYS INC TORY DISORDER VAGINA 79313 PAIN IN 03-03-2008 [facility] [place] JOINT, RADIOLOGY ANKLE AND FOOT 23946 UNSPECIFIED 03-03-2008 [facility] SITE OF N EMERGENCY ANKLE PHYS INC SPRAIN AND STRAIN E8490 PLACE OF 03-03-2008 [facility] E927 OVEREXERTIO 03-03-2008 [facility] N&STRENUOUS N EMERGENCY &REPETITIVE PHYS INC MVMNTS/LOAD S 7242 LUMBAGO 02-25-2008 [facility] N EMERGENCY PHYS INC V642 SURG/OTH 12-21-2007 [facility] PROC NOT COMMUNITY CARRIED OUT HOSPITAL BECAUSE PTS DECN 90902 UNSPECIFIED 12-09-2007 [facility] VIRAL N EMERGENCY INFECTION PHYS INC IN [...] PH AR MA CY #0 54 37 OH 65 09 10 15 5 00 KE [...] ve LO 16 20 20 91 [place] OH 90 17 17 36 AM 1 97 CV S 10 PH AR MG MA CY TA BL LL ET C, DB A CV S PH AR MA CY #0 54 37 OH 65 09 10 15 5 00 KE [...] PH AR MA CY #0 54 37 OH 65 08 09 15 5 00 KE [...] ve LO 16 20 20 35 AR OH 90 17 17 98 MA AM 1 [...] MG #0 23 TA 32 BL ET OH 00 08 09 19 10 00 CV [...] ve LO 16 20 20 35 AR OH 90 17 17 98 MA AM 1 26 CY 10 #0 23 MG 32 TA BL ET ES 16 06 07 30 30 00 CV Ac CI 72 -1 -2 .0 00 S ti TA 90 9- 1- 00 01 PH ve LO 16 20 20 35 AR OH 90 17 17 98 MA AM 1 [...] MC 32 G IN OROZCO LE R OH 00 06 07 10 5 00 WA [...] ve LO 16 20 20 29 AR OH 90 17 17 49 MA AM 1 00 CY 10 #0 23 MG 32 TA BL ET NA 65 05 06 20 10 00 WA Ac OH 16 -1 -0 .0 00 L- ti [...] 48 RT ZA 89 17 17 79 OH 0 62 PH IN AR E MA [...] ve LO 16 20 20 29 AR OH 90 17 17 49 MA AM 1 [...] ve LO 16 20 20 29 AR OH 90 17 17 49 MA AM 1 [...] 03 03 30 30 00 CV Ac OH 37 -0 -3 .0 00 S ti [...] ve LO 16 20 20 29 AR OH 90 17 17 49 MA AM 1 00 CY 10 #0 23 MG 32 TA BL ET BU 10 02 03 30 30 00 CV Ac OH 37 -0 -1 .0 00 S ti [...] ve LO 16 20 20 29 AR OH 90 17 17 49 MA AM 1 [...] 01 02 30 15 00 CV Ac OH 16 -2 -1 .0 00 S ti [...] 01 02 30 30 00 CV Ac OH 37 -1 -1 .0 00 S ti [...] ve LO 16 20 20 18 AR OH 90 16 17 04 MA AM 1 [...] 08 08 MA TA 0 CY D WV F N- 23 CA 32 FF 50 [...] 00 60 30 CV 14 AT Ac OH 37 -1 -2 .0 S 93 CH [...] 08 08 MA TA 0 CY D WV F N- 23 CA 32 FF 50 [...] 00 30 30 CV 14 AT Ac OH 37 -1 -0 .0 S 14 CH [...] MG 23 D 32 TA BL ET OH 00 07 07 00 12 3 CV [...] 00 10 5 CV 12 No Ac OH 09 -3 -0 .0 S 81 t [...] ai ZA 11 08 08 MA la OH 0 CY bl IN e E 23 10 32 MG TA BL ET NA 00 05 05 00 12 6 CV 11 No Ac OH 09 -0 -2 .0 S 98 t [...] 0- 2- [address] ve OH 50 20 20 AR S AM 91 [...] 0- 4- 00 PH 53 Av ve OH 50 20 20 AR ai AM 91 08 08 MA la 3 CY bl HB e R 23 40 32 MG TA BL ET CI 57 03 04 00 30 30 CV 10 No Ac TA 66 -2 -1 .0 S 64 t ti LO 40 0- 7- 00 PH 53 Av ve OH 50 20 20 AR ai AM 91 [...] Procedure DOS Code Location Performer Comment RADIOLOGI 60782 [place] DANNIELLE C EXAM 7 MEDICAL CHEST 2 IMAGING VIEWS ASS FRONTAL&[place] [address] [place] DANNIELLE CERVICAL 7 MEDICAL SPINE W/O IMAGING CONTRAST ASS MATERIAL RADEX 41676 [place] RUDY SHOULDER 7 MEDICAL COMPLETE IMAGING MINIMUM 2 ASS VIEWS THERAPEUT 35711 [facility] KAY IC 7 MEM HOSP MEM HOS[facility] PROPHYLAC INC INC TIC/DX INJECTION SUBQ/IM RADEX 59035 [facility] [place] RADMANESH SHOULDER 7 RADIOLOGY COMPLETE MINIMUM 2 VIEWS RADEX 84978 [facility] KAY SHOULDER 6 MEM HOSP MEM HOSP COMPLETE INC INC MINIMUM 2 VIEWS RADEX 28818 [facility] KAY CLAVICLE 6 MEM HOSP MEM HOSP COMPLETE INC INC RADEX 69408 [facility] SARKARON SPINE 6 MEM HOSP MEM HOSP LUMBOSACR INC INC AL MINIMUM 4 VIEWS RADEX 76277 [facility] [place] RADMANESH SHOULDER 6 RADIOLOGY SHA COMPLETE MINIMUM 2 VIEWS MRI ANY 55293 [place] DANNIELLE ALL JT LOWER 6 MEDICAL EXTREM IMAGING W/O ASS CONTRAST MATRL RADIOLOGI 84718 [facility] COLLAZO SEA C 6 N EXAMINATI RADIOLOGY ON KNEE 3 GROUP P VIEWS COMPUTER- 68979 [facility] AIDED 6 N N DETECTION COMMUNTIY COMMUNTIY DX HOSPITA HOSPITA MAMMOGRAP HY US BREAST 25587 [facility] UNI REAL 6 N N TIME COMMUNTIY COMMUNTIY WITH HOSPITA HOSPITA IMAGE COMPLETE DIAGNOSTI G0204 [facility] C 6 N N MAMMOGRAP COMMUNTIY COMMUNTIY HY INCL HOSPITA HOSPITA CAD WHEN PERF; BILAT RADEX 96207 F[facility]AT[facility] IRASEMA MANDEEP SPINE 6 N LUMBOSACR RADIOLOGY AL 2/3 GROUP P VIEWS INJECTION J1885 [facility] 6 N N KETOROLAC COMMUNTIY COMMUNTIY HOSPITA HOSPITA TROMETHAM INE PER 15 MG INFUSION J7030 [facility] NORMAL 6 N N SALINE COMMUNTIY COMMUNTIY SOLUTION HOSPITA HOSPITA 1000 CC RADEX 34909 [facility] SHOULDER 6 REGIONAL REGIONAL COMPLETE MEDICAL MEDICAL MINIMUM 2 VIEWS RADEX 27333 [facility] SCAPULA 6 REGIONAL REGIONAL COMPLETE MEDICAL MEDICAL RADIOLOGI 63035 RADIOLOGY IRASEMA KAUFMAN C 5 EXAMINATI ASSOCIATE ON CHEST S OF OZZIE [place]ING[place] FRONTAL RADIOLOGI 85840 [facility] [place] JOSSELIN C EXAM 5 RADIOLOGY RHO CHEST 2 VIEWS FRONTAL&L ATERAL RADEX HIP 26329 [facility] 5 MYAH CELY UNILATERA EMERGENCY L PHYS COMPLETE MINIMUM 2 V[place] [address] [facility] JT LOWER 5 N N EXTREM COMMUNTIY COMMUNTIY W/O HOSPITA HOSPITA CONTRAST MATRL RADIOLOGI 69935 [facility] [place] ORTIZ C EXAM 4 RADIOLOGY CARRIE KNEE COMPLETE 4/MORE VIEWS RADEX 42949 [facility] [place] MAGDA SHOULDER 4 RADIOLOGY TONYA COMPLETE MINIMUM 2 VIEWS RADEX 18216 [facility] [place] ARIADNA MAT SPINE 4 RADIOLOGY CERVICAL [address] [place] [address] [facility] [place] BREWER ABDOMEN & 4 RADIOLOGY RAY PELVIS W/O CONTRAST MATERIAL RADEX [address] COMPLETE MINIMUM 2 VIEWS RADEX 86307 [facility] [place] JOSEPH, SPINE 8 RADIOLOGY [place] [address] [address] [place] [address] [facility] [place] KAYDEN, MAXILLOFA 8 RADIOLOGY KATARZYNA D CIAL W/O CONTRAST MATERIAL RADEX 22823 [facility] [place] JOSEPH, SHOULDER 8 RADIOLOGY J COMPLETE MINIMUM 2 VIEWS RADEX 07841 [facility] [place] JOSEPH, SPINE 8 RADIOLOGY J CERVICAL 2 OR 3 VIEWS COLONOSCO 52299 AGUILAR- JEFF- PY FLX DX 8 DENNY, DENNY, W/COLLArden MARSHALL SPEC WHEN PFRMD ANES 47438 [place] DEPA, LOWER 8 ANESTHESI XIMENA INTESTINE A GROUP PSC ENDOSCOPY DISTAL DUODENUM UNLISTED 03997 [facility] ANESTHESI 8 N N A [facility]OSP[facility] URNLS DIP 82282 H[facility]IZON TERRANCE, HEALTHCAR THADDEUS STICK/TAB E CENTER LET RGNT AUTO W/O MICROSCOP Y CUL BACT 54487 [facility] XCPT 8 N N URINE [facility] BLOOD/[facility] [place] [address] [facility] STREPTOCO [address] [facility] [address] PELVIS [address] [facility] [place] KOSTELIC, W/O 8 [place] [address] [facility] [place] KOSTELIC, ABDOMEN 8 RADIOLOGY FERDINAND K W/O CONTRAST MATERIAL RADEX 12970 [facility] ANKLE 8 N N COMPLETE [address] [facility] VIEWS RADIOLOGI 81319 [facility] Fanta BROWN 8 RADIOLOGY N EXAMINATI ON ANKLE 2 VIEWS Encounters Encounter Start End Date Code Location Performer Type Date EMERGENCY 02499 SARAH RASMUSSEN, 7 7 PHYSICIAN JR WATSON S, PLLC T VISIT HIGH/URGE [facility] RA[facility]UL Peters 7 [facility] OUTPATIEN INC T OFFICE 83223 [facility] 7 [facility] T NEW 20 INC MINUTES EMERGENCY 95335 [facility] 7 7 [facility] LOW/MODER SEVERITY EMERGENCY 20919 SARAH RASMUSSEN, 7 7 [facility]YSIC[facility] SE[facility]ITY [facility] - 7 7 [facility] OUTPATIEN INC T HOSPITAL [facility] - 7 7 N OUTPATIEN COMMUNTIY T HOSPITA EMERGENCY 36614 [facility] 7 7 MYAH [facility] EMERGENCY T VISIT PHYS MODERATE SEVERITY EMERGENCY 34647 [facility] 6 6 [facility] T VIS[facility] LIMITED/M INOR PROB HOSPITAL [facility] - 6 6 [facility] OUTPATIEN INC T EMERGENCY 65450 SARAH BELLO 6 6 PHYSICIAN Karen GAN [facility] S, PLLC T VISIT HIGH/URGE NT SEVERITY EMERGENCY 32064 SARAH DEAN 6 6 PHYSICIAN RASHIDA WATSON S PLLC T VISIT MODERATE SEVERITY EMERGENCY 19042 [facility] 6 6 [facility] T VISIT LIMITED/M INOR PROB EMERGENCY 39046 SARAH BELLO 6 6 PHYSICIAN Karen WATSON S PLLC T VISIT MODERATE SEVERITY HOSPITAL [facility] - 6 6 [facility] OUTPATIEN INC T EMERGENCY 24658 [facility] TRISTON 6 6 MYAH [facility] EMERGENCY T VISIT PHYS MODERATE SEVERITY HOSPITAL [facility] - 6 6 [facility] OUTPATIEN INC T EMERGENCY 91438 SARAH DEAN 6 6 [facility] T VISIT MODERATE SEVERITY EMERGENCY 19645 [facility] 6 6 MEM HOSP DEPARTMEN INC T VISIT LOW/MODER SEVERITY EMERGENCY 65596 SANDER-I TANNER RAC 6 6 MEDICAL DEPARTMEN SERVICES T VISIT MODERATE SEVERITY HOSPITAL [facility] - 6 6 N OUTPATIEN COMMUNTIY T HOSPITA EMERGENCY 84763 LIZ HOOD DEPT 6 6 JR MARCIA CROWLEY VISIT HIGH EMERGENCY SEVERITY& THREAT FUNCJ HOSPITAL [facility] - 6 6 N OUTPATIEN COMMUNTIY T HOSPITA EMERGENCY 02947 [facility] KE YAN 6 6 MYAH DEPARTMEN EMERGENCY T VISIT PHYS HIGH/URGE NT SEVERITY EMERGENCY 81943 [facility] 6 6 N DEPARTMEN COMMUNTIY T VISIT HOSPITA MODERATE SEVERITY EMERGENCY 32232 [facility] 6 6 N DEPARTMEN COMMUNTIY T VISIT HOSPITA LOW/MODER SEVERITY EMERGENCY 90823 [facility] CELLAROSI 6 6 MYAH - YORBA DEPARTMEN EMERGENCY PAT T VISIT PHYS MODERATE SEVERITY HOSPITAL [facility] - 6 6 N OUTPATIEN COMMUNTIY T HOSPITA EMERGENCY 60314 [facility] 6 6 REGIONAL DEPARTMEN MEDICAL T VISIT MODERATE SEVERITY HOSPITAL [facility] - 6 6 REGIONAL OUTPATIEN MEDICAL T EMERGENCY 55366 LIZ MACIAS MAR DEPT 5 5 [facility] VISIT HIGH EMERGENCY SEVERITY& THREAT FUNCJ EMERGENCY 26502 LIZ ALBERTOY TYL 5 5 [facility] DEPARTMEN T VISIT EMERGENCY HIGH/URGE NT SEVERITY EMERGENCY 49329 [facility] KE YAN 5 5 MYAH DEPARTMEN EMERGENCY T VISIT PHYS MODERATE SEVERITY EMERGENCY 45145 [facility] SANTOS 5 5 MYAH CELY DEPARTMEN EMERGENCY T VISIT PHYS MODERATE SEVERITY EMERGENCY 49606 [facility] FRANS[place] JAM 5 5 MYAH DEPARTMEN EMERGENCY T VISIT PHYS MODERATE SEVERITY HOSPITAL [facility] - 5 5 N OUTPATIEN COMMUNTIY T HOSPITA EMERGENCY 05652 [facility] TRISTON 5 5 YMAH SANDRO DEPARTMEN EMERGENCY T VISIT PHYS MODERATE SEVERITY EMERGENCY 63611 [facility] TRISTON 4 4 MYAH SANDRO DEPARTMEN EMERGENCY T VISIT PHYS MODERATE SEVERITY EMERGENCY 76189 [facility] DEPT 4 4 MYAH SCO VISIT EMERGENCY HIGH PHYSI SEVERITY& THREAT FUNCJ EMERGENCY 11409 [facility] DEPARTMEN EMERGENCY T VISIT PHYSI HIGH/URGE NT SEVERITY EMERGENCY 91012 [facility] CELLAROSI 4 4 MYAH - YORBA DEPARTMEN EMERGENCY PAT T VISIT PHYSI MODERATE SEVERITY EMERGENCY 67644 [facility] SANTOS 4 4 MYAH CELY DEPARTMEN EMERGENCY T VISIT PHYSI HIGH/URGE NT SEVERITY EMERGENCY 96134 [facility] 4 4 MYAH RYA DEPARTMEN EMERGENCY T VISIT PHYS HIGH/URGE NT SEVERITY EMERGENCY 46212 [facility] 4 4 MYAH SCO DEPARTMEN EMERGENCY T VISIT PHYSI HIGH/URGE NT SEVERITY EMERGENCY 89940 [facility] 4 4 MYAH SCO DEPARTMEN EMERGENCY T VISIT PHYSI MODERATE SEVERITY EMERGENCY 38738 [facility] DEPT 4 4 MYAH VISIT EMERGENCY HIGH PHYSI SEVERITY& THREAT FUNCJ EMERGENCY 10708 [facility] 4 4 HOSPITAL DEPARTMEN T VISIT MODERATE SEVERITY [facility]OSPITAL [facility] - 4 4 HOSPITAL OUTPATIEN T EMERGENCY 36352 [facility], 8 8 MYAH LIANET DEPARTMEN EMERGENCY T VISIT PHYS INC HIGH/URGE NT SEVERITY EMERGENCY 96207 [facility], 8 8 MYAH JANI Gomez DEPARTMEN EMERGENCY T VISIT PHYS INC MODERATE SEVERITY HOSPITAL [facility] - 8 8 N OUTPATIEN COMMUNITY T HOSPITAL EMERGENCY 36945 [facility], 8 8 MYAH EID DEPARTMEN EMERGENCY A T VISIT PHYS INC MODERATE SEVERITY OFFICE 43596 SILAS ROSEN OUTSHABANA 8 8 PATRICIA Jewell T VISIT 15 MINUTES OFFICE 72314 KATTY CARLOS [facility] 8 8 ADIS TRAVIS T VISIT E CENTER 15 MINUTES OFFICE 55392 [facility] PATRICIA Jewell T VISIT 15 MINUTES HOSPITAL [facility] - 8 8 [facility] [id number] [facility], 8 8 MYAH ANDREW Magallon [facility] EMERGENCY T VISIT PHYS INC MODERATE SEVERITY EMERGENCY 75242 [facility] 8 8 N [facility] LOW/MODER SEVERITY OFFICE [id number] SILAS ROSEN OUT[facility] 8 8 PATRICIA Jewell T VISIT 25 MINUTES EMERGENCY [id number] [facility] 8 8 MYAH Tamie [place], [facility] EMERGENCY LAKESHA T VISIT PHYS INC M HIGH/URGE NT SEVERITY EMERGENCY 93413 [facility] MYAH EID VISIT EMERGENCY A HIGH PHYS INC SEVERITY& THREAT [facility] - 8 8 N [facility] EMERGENCY 38429 [facility] 8 8 N [facility] MODERATE SEVERITY EMERGENCY 06715 [facility], 8 8 MYAH [place] [facility] EMERGENCY A T VISIT PHYS INC MODERATE SEVERITY EMERGENCY 65738 [facility], 8 8 MYAH [place] [facility] EMERGENCY A T VISIT PHYS INC MODERATE SEVERITY EMERGENCY 87644 [facility], 8 8 MYAH [place] [facility] EMERGENCY A T VISIT PHYS INC MODERATE SEVERITY EMERGENCY 51329 [facility] 8 8 N [facility] LIMITED/M INOR [facility] 66836 [facility], 8 8 MYAH Magallon [facility] EMERGENCY T VISIT PHYS INC MODERATE SEVERITY
--- OUTSIDE RECORDS SUMMARY | 2017-08-16 10:37 | External Medical Summary Rpt | CCD ---
Demographics Preferred Language Hungarian Marital Status Unknown Buddhist Affiliation Unknown Race Unknown Ethnic Group Unknown Author Author , KAVIN VALE Address Unknown Phone Immunization No patient found.
--- OUTSIDE RECORDS SUMMARY | 2017-08-16 10:37 | External Medical Summary Rpt ---
Author Author KAVIN Multani, [employer] Organization [employer] Address Unknown Phone Unavailable Results Creatine kinase [Enzymatic activity/volume] in Serum or Plasma Observa Value Referen Units Interpr Notes Date tion ce etation Range Creatine 26 - 192 U/L Normal No Jun 13 kinase informati 2017 7:35 [Enzymati on in PM c source activity/ data volume] in Serum or Plasma
--- OUTSIDE RECORDS SUMMARY | 2017-08-16 10:37 | External Medical Summary Rpt | CCD ---
Demographics Preferred Language Portuguese Marital Status Unknown Jain Affiliation Unknown Race Unknown Ethnic Group Unknown Author Author , KAVIN VALE Address Unknown Phone Immunization No patient found.
[2017-08-16] MEDS ORDERED: FLEXERIL10 MG PO (12:17)
[2017-08-16] MEDS ORDERED: NAPROXEN SODIU500 MG PO (12:17)
--- NOTE | 2017-08-16 12:19 | Emergency Room Report ---
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 N Clinical Suspician of Infection? N Mental Status: 1 - Regular (Normal Baseline) Sepsis Risk:Low Sepsis Risk Have you (or family members/close friends) recently traveled outside the [place]? N If Yes, where/when: Have you had exposure to infectious disease within the past month? TB? Other? Specify: Lifted the heavy end of a log yesterday, and felt a pulling in the muscles at the top of her abdomen, base of anterior ribs. No SOB, no vomiting, no back pain , no neurological sx, no urological sx, no molly chest pain. Pain positional. No fever or cough. ALLERGIES Coded Allergies: erythromycin base (08/16/17) Home Medications Active Scripts Amoxicillin/Potassium Clav (Augmentin 875-125 Tablet) 1 EACH PO BID #14 TAB Prov: 06/24/17 Fluticasone Propionate (Flonase 50 Mcg Nasal [place]) 2 SPRAY NA DAILY #1 BOT Prov: 06/24/17 DICLOFENAC SODIUM (Diclofenac 50MG) 50 MG PO BID #60 TAB Prov: 06/13/17 Methocarbamol (Robaxin) 500 MG PO BID #60 TAB Prov: 06/13/17 Reported Medications Buspirone Hcl (Buspirone 5MG) 5 MG PO TID TRAZODONE HCL (Trazodone HCl) 75 MG PO QHS VENLAFAXINE HCL (Venlafaxine HCl ER) 75 MG PO DAILY #30 Simvastatin 10 MG PO DAILY #30 History Medical History General CAD? No Angina: No IA: No Hypertension? No Hyperlipidemia? Yes CHF? No DVT? No PE? No COPD? No Asthma? No Anemia? No GERD? No Gastric ulcers? No GI Bleed? No Hernia? No Thyroid Problems? No Hypothyroidism? No CVA? No Seizures? No Diabetes? No Renal Insuffiency? No End Stage Renal Disease? No UTI? No Stones? No BPH? No GB Disease: No Nephritic Syndrome? No Asplenia? No Hepatitis? No Sickle Cell Disease? No Arthritis? No Migraines? Yes Cataracts? No Glaucoma? No MRSA? No HIV? No TB? No Anxiety? Yes Depression? Yes Cancer? No More? 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 Social History Smoking Hx Smoker: Current Every Day Smoker Tobacco: Yes Type N/A Packs/day < 1 Pack Alcohol Alcohol: No Review of Systems All Other Systems Reviewed and Negative Musculoskeletal see HPI Physical Exam Vital Signs Vital Signs Date Time Temp Pulse Resp B/P Pulse O2 O2 Flow FiO2 Ox Delivery Rate 08/16 1138 20 08/16 1003 98.1 81 18 96 General Appearance normal appearance, WD/WN, no apparent distress Eye Exam - bilateral eye normal exam, bilateral eye PERRL Neck normal inspection, non-tender, supple, full range of motion Respiratory Status Yes: trachea midline, chest symmetrical, tender on palpation. No: respiratory distress, non tender chest, use of accessory muscles, pain on inspiration, pain on expiration, productive cough, non productive cough (tender inferior ribs B w/ spasm). Lung Sounds bilateral: normal breath sounds, lungs clear. Cardiovascular normal exam, regular rate/rhythm, no peripheral edema, no gallop, no JVD, no murmur, no rub, normal peripheral pulses Gastrointestinal normal bowel sounds, normal exam, non tender, soft, no organomegaly, no pulsatile mass, no guarding, no rebound Back normal inspection, no CVA tenderness, no vertebral tenderness, bowel/ bladder continent, gait normal, strt leg raising(L)-NML, strt leg raising(R)-NML Strength 5 Upper Ext (L), 5 Upper Ext (R), 5 Lower Ext (L), 5 Lower Ext (R) Neurologic alert, normal exam, no motor/sensory deficits, oriented x 3 Glascow Coma Scale Glascow Coma Scale Response Value EYE response: 4 Spontaneously 4 MOTOR response: 6 OBEYS 6 VERBAL response: 5 Oriented & Converses 5 Total 15 Skin intact, normal color, warm/dry Medical Decision Making LABS/Meds/Orders Pt receiving controlled substance in ED? No Results/Orders Current Medication Orders Sig/Theodora Start time Last Medication Dose Route Stop Time Status Admin Ketorolac 0 .STK-MED ONE 08/16 1136 DC Tromethamine .ROUTE Ketorolac 60 MG ONCE ONE 08/16 1130 DC 08/16 Tromethamine IM 08/16 1131 1138 Orders Procedure Date/time Status CHEST(2 VIEWS-NOT PORTABLE) 08/16 1007 Active XRAY/CT/US XRAY/CT/US XRAY chest XR interpretation by reviewed by me Xray Results normal/NAD, neg acute Progress ED Progress Notes Date 08/16/17 Time 1215 Comment Some relief with Toradol, stable at d/c Departure Departure Time of Disposition 1215 Disposition DC Home or Self Care(routine) Clinical Impression Primary Impression: Musculoskeletal chest pain Condition STABLE Referrals MARCE PENDLETON (PCP/Family) Patient Instructions DI for Musculoskeletal Pain Additional Instructions moist heat, Rx Naproxen and Flexeril, See Dr. Pendleton for recheck in one to two days. Discharge Counseling Counseled pt/family regarding diagnosis, test results, medications/RX, home care, follow up needs Prescriptions Current Visit Scripts NAPROXEN (NAPROXEN 500MG TAB) 500 MG PO BIDP PRN pain #20 TAB Cyclobenzaprine Hcl (Flexeril) 5 MG PO BID PRN muscle spasm #6 TAB ED Critical Care Critical Care No at 1218
--- NOTE | 2017-08-16 12:19 | Emergency Room Report ---
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 N Clinical Suspician of Infection? N Mental Status: 1 - Regular (Normal Baseline) Sepsis Risk:Low Sepsis Risk Have you (or family members/close friends) recently traveled outside the [place]? N If Yes, where/when: Have you had exposure to infectious disease within the past month? TB? Other? Specify: Lifted the heavy end of a log yesterday, and felt a pulling in the muscles at the top of her abdomen, base of anterior ribs. No SOB, no vomiting, no back pain , no neurological sx, no urological sx, no molly chest pain. Pain positional. No fever or cough. ALLERGIES Coded Allergies: erythromycin base (08/16/17) Home Medications Active Scripts Amoxicillin/Potassium Clav (Augmentin 875-125 Tablet) 1 EACH PO BID #14 TAB Prov: 06/24/17 Fluticasone Propionate (Flonase 50 Mcg Nasal [place]) 2 SPRAY NA DAILY #1 BOT Prov: 06/24/17 DICLOFENAC SODIUM (Diclofenac 50MG) 50 MG PO BID #60 TAB Prov: 06/13/17 Methocarbamol (Robaxin) 500 MG PO BID #60 TAB Prov: 06/13/17 Reported Medications Buspirone Hcl (Buspirone 5MG) 5 MG PO TID TRAZODONE HCL (Trazodone HCl) 75 MG PO QHS VENLAFAXINE HCL (Venlafaxine HCl ER) 75 MG PO DAILY #30 Simvastatin 10 MG PO DAILY #30 History Medical History General CAD? No Angina: No [place]: No Hypertension? No Hyperlipidemia? Yes CHF? No DVT? No PE? No COPD? No Asthma? No Anemia? No GERD? No Gastric ulcers? No GI Bleed? No Hernia? No Thyroid Problems? No Hypothyroidism? No CVA? No Seizures? No Diabetes? No Renal Insuffiency? No End Stage Renal Disease? No UTI? No Stones? No BPH? No GB Disease: No Nephritic Syndrome? No Asplenia? No Hepatitis? No Sickle Cell Disease? No Arthritis? No Migraines? Yes Cataracts? No Glaucoma? No MRSA? No HIV? No TB? No Anxiety? Yes Depression? Yes Cancer? No More? 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 Social History Smoking Hx Smoker: Current Every Day Smoker Tobacco: Yes Type N/A Packs/day < 1 Pack Alcohol Alcohol: No Review of Systems All Other Systems Reviewed and Negative Musculoskeletal see HPI Physical Exam Vital Signs Vital Signs Date Time Temp Pulse Resp B/P Pulse O2 O2 Flow FiO2 Ox Delivery Rate 08/16 1138 20 08/16 1003 98.1 81 18 96 General Appearance normal appearance, WD/WN, no apparent distress Eye Exam - bilateral eye normal exam, bilateral eye PERRL Neck normal inspection, non-tender, supple, full range of motion Respiratory Status Yes: trachea midline, chest symmetrical, tender on palpation. No: respiratory distress, non tender chest, use of accessory muscles, pain on inspiration, pain on expiration, productive cough, non productive cough (tender inferior ribs B w/ spasm). Lung Sounds bilateral: normal breath sounds, lungs clear. Cardiovascular normal exam, regular rate/rhythm, no peripheral edema, no gallop, no JVD, no murmur, no rub, normal peripheral pulses Gastrointestinal normal bowel sounds, normal exam, non tender, soft, no organomegaly, no pulsatile mass, no guarding, no rebound Back normal inspection, no CVA tenderness, no vertebral tenderness, bowel/ bladder continent, gait normal, strt leg raising(L)-NML, strt leg raising(R)-NML Strength 5 Upper Ext (L), 5 Upper Ext (R), 5 Lower Ext (L), 5 Lower Ext (R) Neurologic alert, normal exam, no motor/sensory deficits, oriented x 3 Glascow Coma Scale Glascow Coma Scale Response Value EYE response: 4 Spontaneously 4 MOTOR response: 6 OBEYS 6 VERBAL response: 5 Oriented & Converses 5 Total 15 Skin intact, normal color, warm/dry Medical Decision Making LABS/Meds/Orders Pt receiving controlled substance in ED? No Results/Orders Current Medication Orders Sig/Theodora Start time Last Medication Dose Route Stop Time Status Admin Ketorolac 0 .STK-MED ONE 08/16 1136 DC Tromethamine .ROUTE Ketorolac 60 MG ONCE ONE 08/16 1130 DC 08/16 Tromethamine IM 08/16 1131 1138 Orders Procedure Date/time Status CHEST(2 VIEWS-NOT PORTABLE) 08/16 1007 Active XRAY/CT/US XRAY/CT/US XRAY chest XR interpretation by reviewed by me Xray Results normal/NAD, neg acute Progress ED Progress Notes Date 08/16/17 Time 1215 Comment Some relief with Toradol, stable at d/c Departure Departure Time of Disposition 1215 Disposition DC Home or Self Care(routine) Clinical Impression Primary Impression: Musculoskeletal chest pain Condition STABLE Referrals MARCE PENDLETON (PCP/Family) Patient Instructions DI for Musculoskeletal Pain Additional Instructions moist heat, Rx Naproxen and Flexeril, See Dr. Pendleton for recheck in one to two days. Discharge Counseling Counseled pt/family regarding diagnosis, test results, medications/RX, home care, follow up needs Prescriptions Current Visit Scripts NAPROXEN (NAPROXEN 500MG TAB) 500 MG PO BIDP PRN pain #20 TAB Cyclobenzaprine Hcl (Flexeril) 5 MG PO BID PRN muscle spasm #6 TAB ED Critical Care Critical Care No at 1218
[2017-08-16 12:38] VITALS: BP 104/68
--- NOTE | 2017-08-16 20:29 | RADIOLOGY REPORT PS360 ---
CHEST(2 VIEWS-NOT PORTABLE) HISTORY: PAIN AFTER INJURY :Chest pain back pain Patient Age: 47 years: Female Ordering Physician: TECHNIQUE: PA and lateral chest COMPARISON is made 06/13/2017 FINDINGS Lungs well expanded and clear with no active disease. No significant change compared to previous chest film 06/13/2017 Suggestion of perhaps minor chronic changes and coarsened markings at the heart georgette and mediastinal structures satisfactory. Chest wall and T-spine unremarkable. No pneumothorax. No pleural effusion. IMPRESSION: Stable chest nothing definitely acute
== END 2017-08-16 12:39 | disposition home or self-care (01) ==
LOC: ER 10:00
DX: R07.89 Other chest pain (principal); Z88.1 Allergy status to other antibiotic agents; E78.5 Hyperlipidemia, unspecified; F17.210 Nicotine dependence, cigarettes, uncomplicated

== ENCOUNTER 2017-09-15 08:38 | Emergency (ER) | payer MEDICAID ==
[~2017-09-15] VITALS: Ht 160 cm; Wt 57.2 kg
[~2017-09-15 08:38] MED LIST changes: +NAPROXEN SODIU500 MG PO
--- OUTSIDE RECORDS SUMMARY | 2017-09-15 08:57 | External Medical Summary Rpt | CCD ---
Demographics Preferred Language Setswana Marital Status Unknown Baptist Affiliation Unknown Race Unknown Ethnic Group Unknown Author Author , KAVIN VALE Address Unknown Phone Immunization No patient found.
--- OUTSIDE RECORDS SUMMARY | 2017-09-15 08:57 | External Medical Summary Rpt | CCD ---
Author Author [employer] Organization [employer] Address Unknown Phone Unavailable Purpose Continuity of Care Document - through 2016
--- OUTSIDE RECORDS SUMMARY | 2017-09-15 08:57 | External Medical Summary Rpt | CCD ---
Demographics Preferred Language Amharic Marital Status Unknown Rastafarian Affiliation Unknown Race Unknown Ethnic Group Unknown Author Author , KAVIN VALE Address Unknown Phone Immunization No patient found.
--- OUTSIDE RECORDS SUMMARY | 2017-09-15 08:57 | External Medical Summary Rpt | CCD ---
Author Author , KAVIN VALE Address Unknown Phone [email or web address] Purpose Continuity of Care Document - 06-13-2017 through 2016 Problems Code Diagnosis DOS Provider Status [id number] L66.3 PERIFOLLICU LITIS CAPITIS ABSCEDENS M25.512 PAIN IN LEFT SHOULDER M54.2 CERVICALGIA R07.89 OTHER CHEST PAIN S20.219A CONTUSION OF UNSPECIFIED FRONT WALL OF THORAX, INIT ENCNTR S39.012A STRAIN OF MUSCLE, FASCIA AND TENDON OF LOWER BACK, INIT S40.011A CONTUSION OF RIGHT SHOULDER, INITIAL ENCOUNTER S83.8X9A SPRAIN OF OTH PARTS OF UNSPECIFIED KNEE, INIT ENCNTR
--- OUTSIDE RECORDS SUMMARY | 2017-09-15 08:57 | External Medical Summary Rpt | CCD ---
Author Author , KAVIN VALE Address Unknown Phone [email or web address] Purpose Continuity of Care Document - 06-13-2017 through 2016 Problems Code Diagnosis DOS Provider Status [id number] L66.3 PERIFOLLICU LITIS CAPITIS ABSCEDENS M25.512 PAIN IN LEFT SHOULDER M54.2 CERVICALGIA R07.89 OTHER CHEST PAIN S20.219A CONTUSION OF UNSPECIFIED FRONT WALL OF THORAX, INIT ENCNTR S39.012A STRAIN OF MUSCLE, FASCIA AND TENDON OF LOWER BACK, INIT S40.011A CONTUSION OF RIGHT SHOULDER, INITIAL ENCOUNTER S83.8X9A SPRAIN OF OTH PARTS OF UNSPECIFIED KNEE, INIT ENCNTR
--- NOTE | 2017-09-15 09:02 | Emergency Room Report ---
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 N Clinical Suspician of Infection? N Mental Status: 1 - Regular (Normal Baseline) Sepsis Risk:Low Sepsis Risk Have you (or family members/close friends) recently traveled outside the [place]? N If Yes, where/when: Have you had exposure to infectious disease within the past month? N TB? Other? Specify: Patient with nausea x four days, multiple episodes of bilious emesis and watery stools for the last day and a half; no recent outside meals; shares food with family member, who is not ill. No fever. Has diffuse cramping. S/P choly and appy. Not keeping down PO liquids or foods at this point. ALLERGIES Coded Allergies: erythromycin base (08/16/17) Home Medications Discontinued Scripts NAPROXEN (NAPROXEN 500MG TAB) 500 MG PO BIDP PRN pain #20 TAB Prov: 08/16/17 DC: 09/14/17 0000 Reported Medications Buspirone Hcl (Buspirone 5MG) 5 MG PO TID TRAZODONE HCL (Trazodone HCl) 75 MG PO QHS VENLAFAXINE HCL (Venlafaxine HCl ER) 75 MG PO DAILY #30 Simvastatin 10 MG PO DAILY #30 History Medical History General CAD? No Angina: No ND: No Hypertension? No Hyperlipidemia? Yes CHF? No DVT? No PE? No COPD? No Asthma? No Anemia? No GERD? No Gastric ulcers? No GI Bleed? No Hernia? No Thyroid Problems? No Hypothyroidism? No CVA? No Seizures? No Diabetes? No Renal Insuffiency? No End Stage Renal Disease? No UTI? No Stones? No BPH? No GB Disease: No Nephritic Syndrome? No Asplenia? No Hepatitis? No Sickle Cell Disease? No Arthritis? No Migraines? Yes Cataracts? No Glaucoma? No MRSA? No HIV? No TB? No Anxiety? Yes Depression? Yes Cancer? No More? 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 Social History Smoking Hx Smoker: Current Every Day Smoker Tobacco: Yes Type Cigarettes Packs/day < 1 Pack Alcohol Alcohol: No Review of Systems All Other Systems Reviewed and Negative Gastrointestinal see HPI Physical Exam Vital Signs Vital Signs Date Time Temp Pulse Resp B/P Pulse O2 O2 Flow FiO2 Ox Delivery Rate 09/15 1011 77 101/72 09/15 1011 64 115/63 09/15 1002 90 18 98 09/15 0843 98.0 90 18 126/72 98 General Appearance normal appearance, WD/WN (actively vomiting) Eye Exam - bilateral eye normal exam, bilateral eye PERRL, bilateral eye EOMI Neck normal inspection, non-tender, supple, full range of motion Respiratory Status Yes: trachea midline, chest symmetrical, non tender chest. No: respiratory distress, tender on palpation, use of accessory muscles, pain on inspiration, pain on expiration, productive cough, non productive cough. Lung Sounds bilateral: normal breath sounds, lungs clear. Cardiovascular normal exam, regular rate/rhythm, no peripheral edema, no gallop, no JVD, no murmur, no rub Gastrointestinal normal bowel sounds, normal exam, non tender, soft, no organomegaly, no pulsatile mass, no guarding, no rebound Strength 5 Upper Ext (L), 5 Upper Ext (R), 5 Lower Ext (L), 5 Lower Ext (R) Neurologic alert, normal exam, no motor/sensory deficits, oriented x 3 Glascow Coma Scale Glascow Coma Scale Response Value EYE response: 4 Spontaneously 4 MOTOR response: 6 OBEYS 6 VERBAL response: 5 Oriented & Converses 5 Total 15 Skin intact, normal color, warm/dry Medical Decision Making LABS/Meds/Orders Pt receiving controlled substance in ED? No Results/Orders Laboratory Tests 09/15/17 1044: Urine Color DK YELLOW, Urine Appearance SL CLOUDY, Urine pH 6.0, Ur Specific [place] 1.020, Urine Protein TRACE H, Urine Ketones TRACE H, Urine Blood TRACE -LYSED, Urine Nitrate NEGATIVE, Urine Bilirubin NEGATIVE, Urine Urobilinogen 1.0 , Ur Leukocyte Esterase NEGATIVE, Urine RBC OCC, Urine WBC OCC, Ur Squamous Epith Cells 5-10, Urine Bacteria 2+, Urine Mucus 4+, Urine Glucose NEGATIVE 09/15/17904: Sodium 139, Potassium 3.6, Chloride 100, Carbon Dioxide 26, BUN 20 H, Creatinine 1.0, Estimated Creat Clear 61, Estimated GFR (MDRD) 59, Glucose 155 H, Calcium 9.3, Total Bilirubin 0.7, AST 25, ALT 74, Alkaline Phosphatase 103, Total Protein 8.7 H, Albumin 4.4, Globulin 4.3 H, Albumin/Globulin Ratio 1.0 L, Lipase 90, WBC 11.0 H, RBC 5.51 H, Hgb 17.0 H, Hct 52.2 H, MCV 94.8, RDW 12.8, Plt Count 530 H, MPV 7.1 L, Gran % 69.8, Gran # 7.7, Lymphocytes % 22.2, Monocytes % 5.7, Eosinophils % 1.9, Basophils % 0.4, Lymphocytes # 2.4, Monocytes # 0.6, Eosinophils # 0.2, Basophils # 0.1, PUBS MCHC 32.5, MCH 30.8 Current Medication Orders Sig/Theodora Start time Last Medication Dose Route Stop Time Status Admin Lactated Ringer's 1,000 ML .Q1H1M 09/15 1015 DC 09/15 IV 09/15 1115 1016 Sodium Chloride 10 ML PRN PRN 09/15 1015 AC IV 09/16 1015 Lactated Ringer's 1,000 ML .STK-MED ONE 09/15 1013 DC IV Hydroxyzine HCl 25 MG ONCE ONE 09/15 0945 DC 09/15 IM 09/15 0946 0956 Hydroxyzine HCl 0 .STK-MED ONE 09/15 0941 DC IM Dicyclomine HCl 20 MG ONCE ONE 09/15 0915 DC 09/15 IV 09/15 0916 0908 Ondansetron HCl 4 MG ONCE ONE 09/15 0915 DC 09/15 IV 09/15 0916 0907 Sodium Chloride 10 ML PRN PRN 09/15 0915 AC IV 09/16 0911 Dicyclomine HCl 0 .STK-MED ONE 09/15 0906 DC .ROUTE Lactated Ringer's 1,000 ML .STK-MED ONE 09/15 0905 DC IV Ondansetron HCl 0 .STK-MED ONE 09/15 0904 DC .ROUTE Lactated Ringer's 1,000 ML .Q1H1M 09/15 845 DC 09/15 IV 09/15 945 0907 Ondansetron HCl 4 MG 09/15 845 CAN IV Sodium Chloride 10 ML PRN PRN 09/15 845 AC IV 09/16 08 Orders Procedure Date/time Status DIET-NOTHING BY MOUTH 09/15 L Active CULTURE, URINE 09/15 1044 Active URINALYSIS/COMPLETE 09/[address] ABD/PELVIS REQ 09/15 0935 Complete IV SALINE LOCK 09/15 911 Active ORTHOSTATIC B/P 09/15 844 Active LIPASE 09/15 844 Complete CBC WITH AUTO DIFF 09/15 844 Complete CHEM 12 PROFILE 09/15 844 Complete CM/EKG CM/EKG EKG rate, NSR, rhythm, no evid. of ischemic chgs, no ectopy, normal QRS, normal AK, normal EKG, compared w/(date of old) (no change from 09/15/17) XRAY/CT/US XRAY/CT/US CT abdomen, pelvis Time results known: 1046 CT Results normal/NAD Progress ED Progress Notes 1 Date 09/15/17 Time 1046 Comment No longer vomiting. Ambulatory. Able to urinate. Doing trial of PO fluids prior to discharge. ED Progress Notes 2 Date 09/15/17 Time 1120 Comment Vistaril helped significantly; not a surgical abdomen; CT showed enteritis; keeping PO fluids down well. Ready for discharge. Departure Departure Time of Disposition 1120 Disposition DC Home or Self Care(routine) Clinical Impression Primary Impression: Gastroenteritis Secondary Impressions: Abdominal cramping Condition STABLE Referrals MARCE PENDLETON (Family) Patient Instructions Clear Liquid Diet Additional Instructions Vistaril, clear liquids for 24 hours, advance as tolerated, see Dr. Pendleton in two to three days for recheck. Discharge Counseling Counseled pt/family regarding diagnosis, test results, medications/RX, home care, follow up needs Prescriptions Current Visit Scripts Hydroxyzine Pamoate (Vistaril 25MG CAP) 25 MG PO Q6HP PRN vomiting #10 CAP ED Critical Care Critical Care No at 1124
[2017-09-15 09:11] LABS: LYMPH # 2.4 K/mm3 (0.7-4.5); LYMPH % 22.2 % (10-50.0)
--- NOTE | 2017-09-15 10:24 | RADIOLOGY REPORT PS360 ---
CT ABD PELVIS W/O CONTRAST CLINICAL INDICATION: VOMITING,CRAMPING ORDERING PHYSICIAN: Yasmeen Felipe MD PATIENT AGE: 47 years COMPARISON: None TECHNIQUE: Axial images obtained with sagittal and coronal reformats. PROCEDURE: Oral Contrast: None IV Contrast: None . FINDINGS: Lower thorax: No acute finding ABDOMEN: Liver: No masses or biliary dilatation. Gallbladder: Status post cholecystectomy. No biliary dilatation Pancreas: No masses or peripancreatic fluid collections. Spleen: Unremarkable. Adrenals: Unremarkable Kidneys/ureters: No masses. No renal calculi. No hydronephrosis. No perinephric fluid collections. No ureteral dilatation or obvious ureteral calculi. Stomach bowel: There is mild thickened appearance of the ascending and transverse colon which may be due to nondistention versus mild colitis. Appendix: Prior appendectomy PELVIS: Reproductive: Status post hysterectomy Bladder: Nondistended. No obvious stones or masses. ABDOMEN & PELVIS: Peritoneum: No abnormal fluid collections. No obvious inflammatory changes. No free air. Lymph nodes: No enlarged lymph nodes apparent. There are some small nodes in the portal region and mesentery's nonspecific Vasculature: No evidence of abdominal aortic aneurysm. No retroperitoneal hemorrhage evident. Bones: No acute fracture IMPRESSION: Mildly thickened appearance of the ascending and transverse colon which may be due to nondistention versus mild colitis. Otherwise negative CT abdomen pelvis without contrast
[2017-09-15 10:57] LABS: URINE BLOOD TRACE-LYSED (NEG)
[2017-09-15 11:13] LABS: URINE BILIRUBIN - DIPSTICK NEGATIVE (NEG)
[2017-09-15] MEDS ORDERED: VISTARIL25 M1 PO (11:23)
[2017-09-15 11:26] VITALS: BP 101/72
== END 2017-09-15 11:36 | disposition home or self-care (01) ==
LOC: ER 08:38
PROVIDERS: Emergency Medicine
DX: A08.4 Viral intestinal infection, unspecified (principal); F17.210 Nicotine dependence, cigarettes, uncomplicated; F41.8 Other specified anxiety disorders; Z88.1 Allergy status to other antibiotic agents; E78.5 Hyperlipidemia, unspecified
CPT/HCPCS: J2405